=== PATIENT | female | born 1935 | race Caucasian/White ===

== ENCOUNTER 2019-07-16 14:48 | Inpatient (IN) | payer MEDICARE, BC ==
[~2019-07-16] VITALS: Ht 163.8 cm; Wt 74.3 kg
--- NOTE | 2019-07-16 15:38 | PHYS DOC ---
Past History Past Medical History: Anxiety, Dementia, Depression, Stroke Past Medical History Limited secondary to dementia Past Surgical History: Knee Replacement Past Surgical History Limited secondary to dementia Alcohol Use: None Drug Use: None Social History Limited secondary to dementia Adult General Chief Complaint Chief Complaint: PSYCH EVALUATION HPI HPI Patient is a 84-year-old female who presents for medical evaluation for admission to [facility]. Patient has history of dementia, depression, hypertension, and anxiety. She was brought in due to increasing agitation and wandering at current retirement. Patient has become aggressive with staff at times and resistant to accepting her medications. Patient denies fevers, chills, dysuria, increased urinary frequency, chest pain, shortness of breath, or lower extremity swelling. Admits to occasional diarrhea and bilateral knee pain. She is able to walk independently with the assistance of a walker. She denies recent falls. History of present illness limited secondary to dementia Review of Systems Review of Systems Constitutional: Denies fever or chills HENT: Admits nasal congestion, denies sore throat Respiratory: Denies cough or shortness of breath Cardiovascular: Denies chest pain or palpitations GI: Denies abdominal pain, nausea, or vomiting : Denies dysuria or hematuria Musculoskeletal: Denies back pain, admits joint pain Neurologic: Denies headache, focal weakness or sensory changes Review of systems limited secondary to dementia Allergies Allergies Allergies Coded Allergies Type Severity Reaction Last Updated Verified mold Allergy Unknown 07/16/19 Yes Physical Exam Physical Exam Constitutional: Well developed, well nourished, no acute distress, non-toxic appearance HENT: Normocephalic, atraumatic, oropharynx moist Eyes: EOMI, conjunctiva normal, no discharge Neck: Normal range of motion, no tenderness Cardiovascular: Heart rate normal, regular rhythm Lungs & Thorax: Bilateral breath sounds clear to auscultation, no wheezing Abdomen: Soft, no tenderness Skin: Warm, dry, no erythema, no rash Extremities: No tenderness, ROM intact, trace edema in bilateral lower extremity Neurologic: Alert but confused, normal motor function, normal sensory function, no focal deficits noted Psychiatric: Affect normal, judgment abnormal Current Patient Data Vital Signs Vital Signs Date Time Temp Pulse Resp B/P (MAP) Pulse Ox O2 Delivery O2 Flow Rate FiO2 07/16/19 15:12 98.1 79 18 147/93 (111) 96 Room Air EKG EKG Completed At 1506 Normal sinus rhythm with 79 bpm, right bundle branch block noted QRS of 124, QT/QTc of 412/474 Radiology/Procedures Radiology/Procedures [] Course & Med Decision Making Course & Med Decision Making Pertinent Lab studies reviewed. (See chart for details) Patient with past nuchal history of dementia with history of increased agitation presents from retirement for admission to [facility]. Patient medically screened. Labs obtained and posted to chart. EKG stable. Patient stable for [facility] admission for further evaluation and treatment. Dragon Disclaimer Dragon Disclaimer This electronic medical record was generated, in whole or in part, using a voice recognition dictation system. Departure Departure: Impression: Primary Impression: Dementia with behavioral disturbance Disposition: ADMITTED INPATIENT ([facility] under Dr. Woodruff (psych)) Condition: STABLE Referrals: FLOWER MORALEZ MD (PCP) Problem Qualifiers Primary Impression: Dementia with behavioral disturbance Dementia type: unspecified type Qualified Codes: F03.91 - Unspecified dementia with behavioral disturbance RAY CAAL DO Jul 16, 2019 15:38
[2019-07-16 15:45] LABS: BASO % 1 % (0-3); EOS # 0.2 x10^3/uL (0.0-0.7); EOS % 3 % (0-3); HEMATOCRIT 39.2 % (36.0-47.0); HEMOGLOBIN 12.8 g/dL (12.0-15.5); LYMPH # 1.1 x10^3/uL (1.0-4.8); LYMPH % 17 % (24-48); MEAN CORPUSCULAR HEMOGLOBIN 28 pg (25-35); MEAN CORPUSCULAR HGB CONC 33 g/dL (31-37); MEAN CORPUSCULAR VOLUME 87 fL (79-100); MONO % 15 % (0-9); NEUT # 4.4 x10^3uL (1.8-7.7); NEUT % 66 % (31-73); PLATELET COUNT 258 x10^3/uL (140-400); RED BLOOD COUNT 4.49 x10^6/uL (3.50-5.40); RED CELL DISTRIBUTION WIDTH 15.3 % (11.5-14.5); WHITE BLOOD COUNT 6.7 x10^3/uL (4.0-11.0)
[2019-07-16 15:55] LABS: CALCIUM 9.2 mg/dL (8.5-10.1); CREATININE 1.1 mg/dL (0.6-1.0); GFR 47.1; POTASSIUM 3.9 mmol/L (3.5-5.1)
[2019-07-16 16:10] LABS: ACETAMIN < 2.0 mcg/mL (10-30); SALIC 0.3 mg/dL (2.8-20.0)
[2019-07-16 16:11] LABS: ALBUMIN 3.6 g/dL (3.4-5.0); MAGNESIUM 2.1 mg/dL (1.8-2.4); TOTAL BILIRUBIN 0.4 mg/dL (0.2-1.0); TOTAL PROTEIN 7.2 g/dL (6.4-8.2)
[2019-07-16] MEDS ORDERED: MEMA10TA PO (16:13)
[2019-07-16] MEDS ORDERED: FLUT16SP21 NS (16:13)
[2019-07-16] MEDS ORDERED: LANO250L TP (16:13)
[2019-07-16] MEDS ORDERED: QUET25TA5 PO (16:13)
[2019-07-16] MEDS ORDERED: CETI10TA30 PO (16:13)
[2019-07-16] MEDS ORDERED: ACET500T68 PO ×2 (16:13)
[2019-07-16] MEDS ORDERED: TRAZ-120 PO (16:13)
[2019-07-16] MEDS ORDERED: MENT71OI TP (16:13)
[2019-07-16] MEDS ORDERED: ATOR40TA59 PO (16:13)
[2019-07-16] MEDS ORDERED: MIRA25TA PO (16:13)
[2019-07-16] MEDS ORDERED: ALPR0.254 PO ×2 (16:13)
[2019-07-16] MEDS ORDERED: BUSP5TAB PO (16:13)
[2019-07-16] MEDS ORDERED: ASPI-630 PO (16:13)
[2019-07-16] MEDS ORDERED: CALC500T31 PO (16:13)
[2019-07-16] MEDS ORDERED: SERT100T PO (16:13)
[2019-07-16 16:28] LABS: BARBITURATES NEG (NEG); BENZODIAZEPINES POS (NEG); CANNABINOIDS NEG (NEG); COCAINE NEG (NEG); METHADONE NEG (NEG); OPIATES NEG (NEG); PHENCYCLIDINE NEG (NEG)
[2019-07-16 16:29] LABS: AMPHETAMINE/METHAMPHETAMINE NEG (NEG)
[2019-07-16 16:49] LABS: BILIRUBIN,URINE NEG (NEG); CLARITY,URINE CLOUDY; COLOR,URINE AMBER; GLUCOSE,URINE NEG (NEG)
[2019-07-16 16:50] LABS: BACTERIA,URINE FEW /HPF (0-FEW); NITRITE,URINE NEG (NEG); RBC,URINE 0 /HPF (0-2); SQUAMOUS EPITHELIAL CELL,UR OCC /LPF; UROBILINOGEN,URINE 0.2 mg/dL (0.2 mg/dL)
[2019-07-16] MEDS ORDERED: MAGNESIUM HYDROXIDE 2,400 MG/30 ML ORAL.SUSP. PO PRN (17:45)
[2019-07-16] MEDS ORDERED: METHYL SALICYLATE/MENTHOL TOPICAL OINTMENT 57GM TUBE. TP PRN (17:45)
[2019-07-16] MEDS ORDERED: CALCIUM CARBONATE 500 MG TAB.CHEW PO PRN (18:15)
[2019-07-16] MEDS ORDERED: MENTHOL/ZINC OXIDE TOPICAL OINTMENT 113GM JAR. TP PRN (18:15)
[2019-07-16] MEDS ORDERED: MINERAL OIL/PETROLATUM TOPICAL CREAM 113GM JAR. TP PRN (18:30)
--- NOTE | 2019-07-16 18:38 | EKG ---
[address] [address] Test Date: 2019-07-16 Test Time: 15:06:04 Pat Name: LIZA HOWELL Department: Room: Gender: F Market Manager: : [id number] Requested By: RAY CAAL Order Number: [id number] Reading MD: Measurements Intervals [place] Rate: 79 P: 26 [place]: 196 QRS: -20 QRSD: 124 T: 8 QT: 412 QTc: 474 Interpretive Statements SINUS RHYTHM LEFTWARD AXIS RIGHT BUNDLE BRANCH BLOCK RVH WITH REPOLARIZATION ABNORMALITY QRS(T) CONTOUR ABNORMALITY CONSIDER ANTEROSEPTAL MYOCARDIAL DAMAGE ABNORMAL ECG RI6.01 No previous ECG available for comparison
[2019-07-16] MEDS: busPIRone 5 MG TABLET. PO SCH (20:15)
[2019-07-16] MEDS: ATORVASTATIN CALCIUM 20 MG TABLET PO SCH (20:15)
[2019-07-16] MEDS: FLUTICASONE 50MCG/NASAL SPRAY 16GM BOTTLE. NS SCH (20:15)
[2019-07-16 21:11] VITALS: BP 163/84
--- NOTE | 2019-07-16 21:26 | PDOC ---
Exam Note: Hever Note: Please also refer to the separate dictated note~for this date of service dictated separately. Discussed the patient with Nursing staff reviewed the chart.~Reviewed interim history and current functioning. Reviewed vital signs,~Labs/ Radiology~and current medications noted below. Continue current treatment with the changes noted in the dictated addendum note Assessment: Vital Signs/I&O: Vital Signs Date Time Temp Pulse Resp B/P (MAP) Pulse Ox O2 Delivery O2 Flow Rate FiO2 07/16/19 21:11 97.6 76 18 163/84 (110) 97 Room Air Labs: Laboratory Tests Test 07/16/19 15:24 07/16/19 15:50 White Blood Count 6.7 x10^3/uL (4.0-11.0) Red Blood Count 4.49 x10^6/uL (3.50-5.40) Hemoglobin 12.8 g/dL (12.0-15.5) Hematocrit 39.2 % (36.0-47.0) Mean Corpuscular Volume 87 fL (79-100) Mean Corpuscular Hemoglobin 28 pg (25-35) Mean Corpuscular Hemoglobin Concent 33 g/dL (31-37) Red Cell Distribution Width 15.3 % (11.5-14.5) H Platelet Count 258 x10^3/uL (140-400) Neutrophils (%) (Auto) 66 % (31-73) Lymphocytes (%) (Auto) 17 % (24-48) L Monocytes (%) (Auto) 15 % (0-9) H Eosinophils (%) (Auto) 3 % (0-3) Basophils (%) (Auto) 1 % (0-3) Neutrophils # (Auto) 4.4 x10^3uL (1.8-7.7) Lymphocytes # (Auto) 1.1 x10^3/uL (1.0-4.8) Monocytes # (Auto) 1.0 x10^3/uL (0.0-1.1) Eosinophils # (Auto) 0.2 x10^3/uL (0.0-0.7) Basophils # (Auto) 0.0 x10^3/uL (0.0-0.2) Sodium Level 143 mmol/L (136-145) Potassium Level 3.9 mmol/L (3.5-5.1) Chloride Level 107 mmol/L (98-107) Carbon Dioxide Level 25 mmol/L (21-32) Anion Gap 11 (6-14) Blood Urea Nitrogen 23 mg/dL (7-20) H Creatinine 1.1 mg/dL (0.6-1.0) H Estimated GFR (Cockcroft-Gault) 47.1 BUN/Creatinine Ratio 21 (6-20) H Glucose Level 109 mg/dL (70-99) H Calcium Level 9.2 mg/dL (8.5-10.1) Magnesium Level 2.1 mg/dL (1.8-2.4) Total Bilirubin 0.4 mg/dL (0.2-1.0) Aspartate Amino Transferase (AST) 21 U/L (15-37) Alanine Aminotransferase (ALT) 29 U/L (14-59) Alkaline Phosphatase 117 U/L (46-116) H Creatine Kinase 99 U/L (26-192) Creatine Kinase MB (Mass) 1.8 ng/mL (0.0-3.6) Creatine Kinase MB Relative Index 1.8 % (0-4) Troponin I Quantitative < 0.017 ng/mL (0-0.055) Total Protein 7.2 g/dL (6.4-8.2) Albumin 3.6 g/dL (3.4-5.0) Albumin/Globulin Ratio 1.0 (1.0-1.7) Salicylates Level 0.3 mg/dL (2.8-20.0) L Salicylate Last Dose Date Unknown Salicylate Last Dose Time Unknown Acetaminophen Level < 2.0 mcg/mL (10-30) L Acetaminophen Last Dose Date Unknown Acetaminophen Last Dose Time Unknown Ethyl Alcohol Level < 10 mg/dL (0-10) Urine Collection Type Unknown Urine Color Barbara Urine Clarity Cloudy Urine pH 5.5 Urine Specific Bradley >=1.030 Urine Protein Trace (NEG-TRACE) Urine Glucose (UA) Neg mg/dL (NEG) Urine Ketones (Stick) Trace mg/dL (NEG) Urine Blood Neg (NEG) Urine Nitrite Neg (NEG) Urine Bilirubin Neg (NEG) Urine Urobilinogen Dipstick 0.2 mg/dL (0.2 mg/dL) Urine Leukocyte Esterase Trace (NEG) Urine RBC 0 /HPF (0-2) Urine WBC 1-4 /HPF (0-4) Urine Squamous Epithelial Cells Occ /LPF Urine Bacteria Few /HPF (0-FEW) Urine Mucus Mod /LPF Urine Opiates Screen Neg (NEG) Urine Methadone Screen Neg (NEG) Urine Barbiturates Neg (NEG) Urine Phencyclidine Screen Neg (NEG) Urine Amphetamine/Methamphetamine Neg (NEG) Urine Benzodiazepines Screen Pos (NEG) Urine Cocaine Screen Neg (NEG) Urine Cannabinoids Screen Neg (NEG) Urine Ethyl Alcohol Neg (NEG) Current Medications: Meds: Current Medications Medications (Trade) Dose Ordered Sig/Alex Route PRN Reason Start Time Stop Time Status Last Admin Dose Admin Buspirone HCl (Buspar) 5 mg TID PO 07/16/19 21:00 07/16/19 20:15 Atorvastatin Calcium (Lipitor) 40 mg QHS PO 07/16/19 21:00 07/16/19 20:15 I have reviewed the current psychotropics carefully including drug interactions. Risk benefit ratio favors no change other than as noted in my dictated progress note. Diagnosis: Problems: (1) Dementia with behavioral disturbance (2) Major neurocognitive disorder due to Alzheimer's disease, with behavioral disturbance NORAH TOLLIVER MD Jul 16, 2019 21:26
[2019-07-17 02:06] LABS: HEMOGLOBIN A1C 5.7 % (4.8-5.6)
[2019-07-17 05:30] VITALS: BP 137/71
[2019-07-17] MEDS: ALPRAZolam 0.25 MG TABLET PO SCH (09:54)
[2019-07-17] MEDS: ASPIRIN 81 MG TAB.CHEW PO SCH (09:54)
[2019-07-17] MEDS: FLUTICASONE 50MCG/NASAL SPRAY 16GM BOTTLE. NS SCH ×2 (09:54→21:00)
[2019-07-17] MEDS: QUEtiapine 25 MG TABLET. PO SCH ×3 (09:54→17:33)
[2019-07-17] MEDS: MEMANTINE 10 MG TABLET. PO SCH ×2 (09:55→17:33)
[2019-07-17] MEDS: SERTRALINE 100 MG TABLET. PO SCH (09:55)
[2019-07-17] MEDS: busPIRone 5 MG TABLET. PO SCH ×3 (09:55→21:00)
[2019-07-17] MEDS: ACETAMINOPHEN 500 MG TABLET PO SCH (09:55)
[2019-07-17] MEDS: traZODone 50 MG TABLET. PO SCH ×3 (09:55→17:33)
[2019-07-17] MEDS: MIRABEGRON 25 MG TAB.ER.24H PO SCH (09:55)
[2019-07-17] MEDS: CETIRIZINE HCL 10 MG TABLET PO SCH (09:55)
[2019-07-17 13:28] LABS: THYROID STIM HORMONE (TSH) 1.671 uIU/mL (0.358-3.740)
[2019-07-17 15:59] VITALS: BP 120/74
[2019-07-17] MEDS: ATORVASTATIN CALCIUM 20 MG TABLET PO SCH (21:00)
--- NOTE | 2019-07-17 21:23 | PDOC ---
Exam Note: Hever Note: Please also refer to the separate dictated note~for this date of service dictated separately.~Patient seen individually. Discussed the patient with Nursing staff reviewed the chart.~Reviewed interim history and current functioning. Reviewed vital signs,~Labs/ Radiology~and current medications noted below. Continue current treatment with the changes noted in the dictated addendum note Assessment: Vital Signs/I&O: Vital Signs Date Time Temp Pulse Resp B/P (MAP) Pulse Ox O2 Delivery O2 Flow Rate FiO2 07/17/19 15:59 97.1 80 20 120/74 (89) 96 07/17/19 05:30 Room Air I & O 07/16/19 07/16/19 07/17/19 15:00 23:00 07:00 Intake Total 840 ml Balance 840 ml Current Medications: Meds: Current Medications Medications (Trade) Dose Ordered Sig/Alex Route PRN Reason Start Time Stop Time Status Last Admin Dose Admin Acetaminophen (Tylenol) 1,000 mg DAILY PO 07/17/19 09:00 07/17/19 09:55 Alprazolam (Xanax) 0.25 mg DAILY PO 07/17/19 09:00 07/17/19 09:54 Aspirin (Children'S Aspirin) 81 mg DAILY PO 07/17/19 09:00 07/17/19 09:54 Memantine (Namenda) 10 mg BIDWMEALS PO 07/17/19 08:00 07/17/19 17:33 Mirabegron (Myrbetriq) 25 mg DAILY PO 07/17/19 09:00 07/17/19 09:55 Quetiapine Fumarate (SEROquel) 25 mg 0900,1200,1700 PO 07/17/19 09:00 07/17/19 17:33 Sertraline HCl (Zoloft) 100 mg DAILY PO 07/17/19 09:00 07/17/19 09:55 Trazodone HCl (Desyrel) 50 mg 0800,1300,1800 PO 07/17/19 08:00 07/17/19 17:33 Cetirizine HCl (ZyrTEC) 10 mg DAILY PO 07/17/19 09:00 07/17/19 09:55 I have reviewed the current psychotropics carefully including drug interactions. Risk benefit ratio favors no change other than as noted in my dictated progress note. Diagnosis: Problems: (1) Major neurocognitive disorder due to Alzheimer's disease, with behavioral disturbance (2) Dementia with behavioral disturbance (3) Dementia, vascular, with delusions (4) Dementia, vascular, with depression (5) Impulse control disorder NORAH TOLLIVER MD Jul 17, 2019 21:22
--- NOTE | 2019-07-17 21:38 | HP ---
ADMIT DATE: 07/17/2019 PSYCHIATRIC PROGRESS NOTE This note covers elements not covered in my initial note of 07/17/2019. IDENTIFYING DATA: The patient is an 84-year-old female referred to us from [facility] by Dr. Betancourt, her primary care physician on account of worsening memory deficits, marked insomnia, refusing medications, having conversations with her . She has been exit seeking, agitated, aggressive with staff, has failed outpatient psychiatric interventions and 2 prior inpatient psychiatric hospitalizations, one at [facility] and the other at [facility]. Behaviors have been deemed dangerous, unmanageable at the facility. She is referred for inpatient psychiatric stabilization. SUBJECTIVE: I met with the patient's daughter and son-in-law and the patient evening of 07/17/2019 and also discussed with Rizwana Butler, compensation coordinator and nursing staff on 07/16/2019 after the patient was referred to us for the above and came through the Emergency Room at [facility] for psychiatric stabilization. CHIEF COMPLAINT: "I cannot hear you very well. Yes, I get forgetful." HISTORY OF PRESENT ILLNESS: The patient has a history of early dementia, vascular with depression, delusions. She is still able to recognize family members, but does get forgetful about short term events, though remote memory is better and she would not remember how to write music partially. 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 She has also had sleep and appetite changes. No active psychotic symptoms, suicidal or homicidal ideation. PAST PSYCHIATRIC HISTORY: As above. MEDICAL HISTORY: Positive for irritable bowel syndrome, osteoarthritis, hard of hearing, vitamin D deficiency. UA was positive. Culture sensitivity results are pending. CODE STATUS: DNR. ALLERGIES: MOLD. ACCU-CHEKS: None. DIET: Regular. Takes medications whole in applesauce. Ambulates with walker with supervision. CURRENT PSYCHOTROPICS: Xanax 0.25 mg daily plus q. 6 hours p.r.n. anxiety, BuSpar 5 mg 3 times a day, Namenda 10 mg b.i.d., Seroquel 25 mg 3 times a day, Zoloft 100 mg a day, trazodone 50 mg t.i.d. FAMILY HISTORY: Noncontributory. SOCIAL HISTORY: No history of alcohol, drug abuse, physical, sexual or elder abuse. She is not known to be a perpetrator. REACTION TO HOSPITALIZATION: The patient accepting of it. MENTAL STATUS EXAMINATION: The patient was seen individually evening of 07/17/2019. She is oriented to herself. Insight, judgment, recent memory is impaired, remote is better. Language function intact. Attention span short. Mood and affect remain somewhat anxious, labile. LABORATORY DATA: Reviewed. IMPRESSION: Major neurocognitive disorder, early Alzheimer, vascular with delusion, depression, behavioral disturbance; anxiety disorder, unspecified; impulse control disorder, unspecified; rule out urinary tract infection. Rest as above. PLAN: Admit to Geropsychiatry Unit at [facility]. I will see the patient daily individually from a psychiatric standpoint. Medical followup per Dr. Ibrahim. Continue the patient on her current psychotropics. Obtain records from [facility] in [facility]. Observe baseline, then adjust psychotropics as clinically indicated. ESTIMATED LENGTH OF STAY: 10-12 days. DISPOSITION: Plans back to group home when stable. MAN Destiney TOLLIVER MD DR: JUANA/villa JOB#: [id number] / [id number]
--- NOTE | 2019-07-17 22:16 | CONS ---
DATE OF CONSULTATION: 07/17/2019 REASON FOR CONSULTATION: Medical management. HISTORY OF PRESENT ILLNESS: The patient is an 84-year-old female patient, a resident at [facility], who was admitted on account of refusing medication, not sleeping, having conversation with , exit seeking, agitated, aggressive with staff, all this in a background of major neurocognitive disorder, vascular Alzheimer with depression, delusion and behavioral disorder, impulse control disorder; anxiety disorder. PAST MEDICAL HISTORY: Significant for vitamin B and D deficiency, osteoarthritis, hyperlipidemia and irritable bowel syndrome. PAST PSYCHIATRIC HISTORY: Significant for dementia and depression. PAST SURGICAL HISTORY: Significant for bilateral total knee arthroplasty. ALLERGIES: She is allergic to MOLD. MEDICATIONS: She is currently on following medications: She is on cetirizine 10 mg once a day, atorvastatin calcium 40 mg at bedtime, aspirin 81 mg once a day, Tylenol 1000 mg daily and acetaminophen 1000 mg 3 times a day as needed, sertraline 100 mg once a day, trazodone 50 mg 3 times a day, Seroquel 25 mg 3 times a day, alprazolam 0.5 mg daily, alprazolam 0.5 mg every 6 hours as needed, Namenda 10 mg twice a day, calcium carbonate 1000 mg every 6 hours, Flonase 2 sprays to each nostril once a day, Eucerin lotion applied topically twice a day. She is on Myrbetriq 25 mg daily for overactive bladder. PAST SURGICAL HISTORY: Noncontributory. SOCIAL HISTORY: She is a resident at [facility]. She has 2 sons and 1 daughter. She never smoked, does not drink alcohol. PHYSICAL EXAMINATION: GENERAL: On examining her, she looked well and was clearly in no apparent respiratory distress. No pallor, jaundice, cyanosis or thyromegaly. No jugular venous distention. No limb edema. VITAL SIGNS: Her heart rate was 71, blood pressure was 137/71, temperature 97.3, respiratory rate was 18 and oxygen saturation was 96% on room air. HEAD, EYES, EARS, NOSE AND THROAT: Showed normocephalic, atraumatic. NECK: Supple. HEART: Showed normal first and second heart sounds. No gallop, rub or murmur. CHEST: Clear to auscultation. No crepitation or rhonchi. ABDOMEN: Distended, soft, nontender. NEUROLOGIC: She is alert, but confused with normal motor, sensory function, no focal deficit. LABORATORY DATA: Showed a white cell count 6700, hemoglobin 13, hematocrit 39, MCV 87 and platelet count 258,000. Her chemistry showed a serum sodium 143, potassium 3.9, chloride 107, bicarbonate 25, anion gap of 11, BUN 23, creatinine 1.1, estimated GFR was 47 mL per minute. Her blood sugar was 109, calcium was 9.2, magnesium was 2.1. Total serum iron, TIBC and iron saturation are low consistent with anemia of chronic disease. Total bilirubin, AST, ALT, alkaline phosphatase are normal. Total protein was 7.2, albumin was 3.6. Her hemoglobin A1c was 5.7%. Her serum triglycerides were 81. Total cholesterol 110, LDL cholesterol was 47, VLDL was 16 and HDL cholesterol of 47, her ratio was 2. Her vitamin B12 was 520 pg/mL. 25-hydroxyvitamin D was normal at 37. The TSH, total T4 and total T3 are normal. Her toxic screen was positive for benzodiazepine. Her treponema pallidum antibodies were nonreactive. IMPRESSION: In summary, this is an 84-year-old female patient, a resident at [facility], who was admitted on account of being refusing medication, not sleeping, having conversations with her , exit seeking, agitated and aggressive behavior, all of that on the background of major neurocognitive disorder. Medically, the patient seemed stable. Her vital signs are within acceptable range as well as lab work. I will obviously follow all the lab works that are still pending at the time of this dictation and make any necessary recommendation. Thank you Dr. Woodruff for allowing me to participate in the care of this patient. WENDY BROWN MD DR: AMY/villa JOB#: [id number] / [id number]
--- NOTE | 2019-07-17 23:18 | RAD ---
EXAM: AP View of the chest DATE: 07/17/2019 9:30 PM INDICATION: coughing up green/brown mucous; feeling sick; some crackles COMPARISON: No Prior FINDINGS: The heart is not enlarged. Aorta is mildly tortuous. Mediastinal and hilar contours are normal. No focal parenchymal airspace opacity. Emphysematous changes are seen. No pleural effusion or pneumothorax. Left greater than right right shoulder joint degenerative changes. IMPRESSION: 1. No radiographic evidence for acute cardiopulmonary process. 2. Emphysematous changes are seen. Electronically signed by: David Butts MD (07/17/2019 11:15 PM) [id number]
[2019-07-18 05:17] VITALS: BP 104/62
[2019-07-18] MEDS: QUEtiapine 25 MG TABLET. PO SCH ×3 (08:17→17:00)
[2019-07-18] MEDS: MEMANTINE 10 MG TABLET. PO SCH ×2 (08:17→17:00)
[2019-07-18] MEDS: ALPRAZolam 0.25 MG TABLET PO SCH (08:17)
[2019-07-18] MEDS: SERTRALINE 100 MG TABLET. PO SCH (08:17)
[2019-07-18] MEDS: CETIRIZINE HCL 10 MG TABLET PO SCH (08:17)
[2019-07-18] MEDS: busPIRone 5 MG TABLET. PO SCH ×3 (08:17→19:43)
[2019-07-18] MEDS: MIRABEGRON 25 MG TAB.ER.24H PO SCH (08:18)
[2019-07-18] MEDS: traZODone 50 MG TABLET. PO SCH ×3 (08:18→17:58)
[2019-07-18] MEDS: FLUTICASONE 50MCG/NASAL SPRAY 16GM BOTTLE. NS SCH ×2 (08:18→19:43)
[2019-07-18] MEDS: ACETAMINOPHEN 500 MG TABLET PO SCH (08:18)
[2019-07-18] MEDS: ASPIRIN 81 MG TAB.CHEW PO SCH (08:18)
[2019-07-18] MEDS: MAG HYDROX/AL HYDROX/SIMETH 30 ML ORAL.SUSP PO PRN (10:35)
[2019-07-18 15:33] VITALS: BP 148/81
[2019-07-18] MEDS: DIVALPROEX 125 MG CAP.SPRINK PO SCH (17:00)
[2019-07-18] MEDS: ATORVASTATIN CALCIUM 20 MG TABLET PO SCH (19:43)
--- NOTE | 2019-07-18 21:24 | PDOC ---
Exam Note: Hever Note: Please also refer to the separate dictated note~for this date of service dictated separately.~Patient seen individually. Discussed the patient with Nursing staff reviewed the chart.~Reviewed interim history and current functioning. Reviewed vital signs,~Labs/ Radiology~and current medications noted below. Continue current treatment with the changes noted in the dictated addendum note Assessment: Vital Signs/I&O: Vital Signs Date Time Temp Pulse Resp B/P (MAP) Pulse Ox O2 Delivery O2 Flow Rate FiO2 07/18/19 15:33 97.2 70 18 148/81 (103) 94 07/17/19 05:30 Room Air I & O 07/17/19 07/17/19 07/18/19 15:00 23:00 07:00 Intake Total 240 ml 480 ml Balance 240 ml 480 ml Current Medications: Meds: Current Medications Medications (Trade) Dose Ordered Sig/Alex Route PRN Reason Start Time Stop Time Status Last Admin Dose Admin Divalproex Sodium (Depakote Sprinkles) 125 mg 0900,1700 PO 07/18/19 17:00 07/18/19 17:00 I have reviewed the current psychotropics carefully including drug interactions. Risk benefit ratio favors no change other than as noted in my dictated progress note. Diagnosis: Problems: (1) Major neurocognitive disorder due to Alzheimer's disease, with behavioral disturbance (2) Dementia with behavioral disturbance (3) Dementia, vascular, with delusions (4) Dementia, vascular, with depression (5) Impulse control disorder (6) Anxiety disorder NORAH TOLLIVER MD Jul 18, 2019 21:24
[2019-07-19 05:33] VITALS: BP 136/72
[2019-07-19] MEDS: MIRABEGRON 25 MG TAB.ER.24H PO SCH (08:44)
[2019-07-19] MEDS: DIVALPROEX 125 MG CAP.SPRINK PO SCH ×2 (08:45→17:00)
[2019-07-19] MEDS: CETIRIZINE HCL 10 MG TABLET PO SCH (08:45)
[2019-07-19] MEDS: traZODone 50 MG TABLET. PO SCH ×3 (08:45→18:00)
[2019-07-19] MEDS: MEMANTINE 10 MG TABLET. PO SCH ×2 (08:45→17:00)
[2019-07-19] MEDS: FLUTICASONE 50MCG/NASAL SPRAY 16GM BOTTLE. NS SCH ×2 (08:45→20:10)
[2019-07-19] MEDS: ASPIRIN 81 MG TAB.CHEW PO SCH (08:45)
[2019-07-19] MEDS: ALPRAZolam 0.25 MG TABLET PO SCH (08:45)
[2019-07-19] MEDS: SERTRALINE 100 MG TABLET. PO SCH (08:45)
[2019-07-19] MEDS: busPIRone 5 MG TABLET. PO SCH ×3 (08:45→20:10)
[2019-07-19] MEDS: QUEtiapine 25 MG TABLET. PO SCH ×3 (08:45→17:00)
[2019-07-19] MEDS: ACETAMINOPHEN 500 MG TABLET PO SCH (08:45)
[2019-07-19 15:40] VITALS: BP 119/79
[2019-07-19] MEDS: ATORVASTATIN CALCIUM 20 MG TABLET PO SCH (20:10)
[2019-07-20 05:58] VITALS: BP 125/72
[2019-07-20] MEDS: DIVALPROEX 125 MG CAP.SPRINK PO SCH ×2 (08:31→17:00)
[2019-07-20] MEDS: MIRABEGRON 25 MG TAB.ER.24H PO SCH (08:31)
[2019-07-20] MEDS: CETIRIZINE HCL 10 MG TABLET PO SCH (08:32)
[2019-07-20] MEDS: QUEtiapine 25 MG TABLET. PO SCH ×3 (08:32→17:00)
[2019-07-20] MEDS: MEMANTINE 10 MG TABLET. PO SCH ×2 (08:32→17:00)
[2019-07-20] MEDS: traZODone 50 MG TABLET. PO SCH ×3 (08:32→17:49)
[2019-07-20] MEDS: ACETAMINOPHEN 500 MG TABLET PO SCH (08:32)
[2019-07-20] MEDS: FLUTICASONE 50MCG/NASAL SPRAY 16GM BOTTLE. NS SCH ×2 (08:32→21:22)
[2019-07-20] MEDS: SERTRALINE 100 MG TABLET. PO SCH (08:32)
[2019-07-20] MEDS: ALPRAZolam 0.25 MG TABLET PO SCH (08:32)
[2019-07-20] MEDS: ASPIRIN 81 MG TAB.CHEW PO SCH (08:32)
[2019-07-20] MEDS: busPIRone 5 MG TABLET. PO SCH ×3 (08:32→21:22)
[2019-07-20 15:59] VITALS: BP 132/84
[2019-07-20] MEDS: ATORVASTATIN CALCIUM 20 MG TABLET PO SCH (21:22)
--- NOTE | 2019-07-20 21:38 | PDOC ---
Exam Note: Hever Note: This is a late entry for DOS 07/19/2019. Please also refer to the separate dictated note~for this date of service dictated separately.~Patient seen individually. Discussed the patient with Nursing staff reviewed the chart.~Reviewed interim history and current functioning. Reviewed vital signs,~Labs/ Radiology~and current medications noted below. Continue current treatment with the changes noted in the dictated addendum note Assessment: Vital Signs/I&O: Vital Signs Date Time Temp Pulse Resp B/P (MAP) Pulse Ox O2 Delivery O2 Flow Rate FiO2 07/20/19 15:59 97.6 69 18 132/84 (100) 99 07/20/19 05:58 Room Air I & O 07/19/19 07/19/19 07/20/19 15:00 23:00 07:00 Intake Total 840 ml 720 ml Balance 840 ml 720 ml Current Medications: I have reviewed the current psychotropics carefully including drug interactions. Risk benefit ratio favors no change other than as noted in my dictated progress note. Diagnosis: Problems: (1) Anxiety disorder (2) Major neurocognitive disorder due to Alzheimer's disease, with behavioral d isturbance (3) Dementia with behavioral disturbance (4) Dementia, vascular, with delusions (5) Dementia, vascular, with depression (6) Impulse control disorder NORAH TOLLIVER MD Jul 20, 2019 21:38
--- NOTE | 2019-07-20 21:52 | PDOC ---
Exam Note: Hever Note: Please also refer to the separate dictated note~for this date of service dictated separately.~Patient seen individually. Discussed the patient with Nursing staff reviewed the chart.~Reviewed interim history and current functioning. Reviewed vital signs,~Labs/ Radiology~and current medications noted below. Continue current treatment with the changes noted in the dictated addendum note Assessment: Vital Signs/I&O: Vital Signs Date Time Temp Pulse Resp B/P (MAP) Pulse Ox O2 Delivery O2 Flow Rate FiO2 07/20/19 15:59 97.6 69 18 132/84 (100) 99 07/20/19 05:58 Room Air I & O 07/19/19 07/19/19 07/20/19 15:00 23:00 07:00 Intake Total 840 ml 720 ml Balance 840 ml 720 ml Current Medications: I have reviewed the current psychotropics carefully including drug interactions. Risk benefit ratio favors no change other than as noted in my dictated progress note. Diagnosis: Problems: (1) Anxiety disorder (2) Major neurocognitive disorder due to Alzheimer's disease, with behavioral disturbance (3) Dementia with behavioral disturbance (4) Dementia, vascular, with delusions (5) Dementia, vascular, with depression (6) Impulse control disorder NORAH TOLLIVER MD Jul 20, 2019 21:52
--- NOTE | 2019-07-20 23:14 | PN ---
DATE: 07/18/2019 PSYCHIATRIC PROGRESS NOTE This late entry 07/18/2019 covers elements not covered in my initial note. SUBJECTIVE: I met with the patient evening of 07/18/2019. Per JOSEPH Cates, the patient slept 9-1/4 hours previous night. She has been pleasant, compliant with medications. We have requested records from [facility]. She continues to have some mood lability. REVIEW OF SYSTEMS: No CV, , pulmonary, eye, ENT system symptoms on review. Reliability poor. MENTAL STATUS EXAM: Oriented to herself, at times situation. Speech is coherent, has some latency. Abstraction fair, computation impaired, language function intact, attention span short. Mood and affect remain somewhat anxious, at times labile, but improved. Short term memory is impaired. LABORATORY DATA: Reviewed. IMPRESSION: Major neurocognitive disorder, early Alzheimer, vascular with delusion, depression; anxiety disorder, unspecified; impulse control disorder, unspecified. PLAN: Continue current psychotropics. Start Depakote Sprinkles 125 mg 9 a.m., 5:00 p.m. Check CBC, CMP, valproic acid level in 3 days. Rest unchanged for now. MAN Destiney TOLLIVER MD DR: JUANA/villa JOB#: [id number] / [id number]
--- NOTE | 2019-07-20 23:37 | PN ---
DATE: 07/19/2019 PSYCHIATRIC PROGRESS NOTE This late entry 07/19/2019 covers elements not covered in my initial note. SUBJECTIVE: I met with the patient evening of 07/19/2019. The patient slept 8-1/2 hours previous night. She remains confused, frequently asking nursing staff "where am I." REVIEW OF SYSTEMS: Ambulation impaired, with walker. No CV, , pulmonary, eye, ENT system symptoms on review. MENTAL STATUS EXAM: Oriented to herself. Insight, judgment, recent and remote memory, attention, concentration, fund of knowledge poor, consistent with her diagnoses. IMPRESSION: Major neurocognitive disorder, Alzheimer, vascular with delusion, depression, behavioral disturbance, urinary tract infection; anxiety disorder, unspecified; impulse control disorder, unspecified. PLAN: Await records from [facility] and [facility] and continue Zoloft, trazodone, Depakote was initiated, maintain BuSpar, Namenda and Seroquel unchanged for now. NORAH TOLLIVER MD DR: JUANA/villa JOB#: [id number] / [id number]
[2019-07-21 06:28] VITALS: BP 165/93
[2019-07-21 06:45] LABS: BASO % 1 % (0-3); EOS # 0.4 x10^3/uL (0.0-0.7); EOS % 8 % (0-3); HEMOGLOBIN 11.8 g/dL (12.0-15.5); LYMPH % 21 % (24-48); MEAN CORPUSCULAR HEMOGLOBIN 28 pg (25-35); MEAN CORPUSCULAR HGB CONC 32 g/dL (31-37); MEAN CORPUSCULAR VOLUME 87 fL (79-100); MONO # 0.7 x10^3/uL (0.0-1.1); MONO % 14 % (0-9); NEUT # 2.7 x10^3uL (1.8-7.7); NEUT % 56 % (31-73); PLATELET COUNT 245 x10^3/uL (140-400); RED BLOOD COUNT 4.24 x10^6/uL (3.50-5.40); RED CELL DISTRIBUTION WIDTH 14.9 % (11.5-14.5); WHITE BLOOD COUNT 4.8 x10^3/uL (4.0-11.0)
[2019-07-21 07:02] LABS: ALK PHOS 116 U/L (46-116); ALT (SGPT) 20 U/L (14-59); ANION GAP 8 (6-14); AST (SGOT) 15 U/L (15-37); BLOOD UREA NITROGEN 22 mg/dL (7-20); BUN/CREATININE RATIO 22 (6-20); CALCIUM 8.7 mg/dL (8.5-10.1); CARBON DIOXIDE 28 mmol/L (21-32); CHLORIDE 108 mmol/L (98-107); GFR 52.6; GLUCOSE 92 mg/dL (70-99); POTASSIUM 4.4 mmol/L (3.5-5.1); SODIUM 144 mmol/L (136-145); TOTAL BILIRUBIN 0.2 mg/dL (0.2-1.0); TOTAL PROTEIN 6.1 g/dL (6.4-8.2)
[2019-07-21 07:03] LABS: VAL ACID 20 mcg/mL (50-100)
[2019-07-21] MEDS: DIVALPROEX 125 MG CAP.SPRINK PO SCH ×2 (08:44→17:40)
[2019-07-21] MEDS: ASPIRIN 81 MG TAB.CHEW PO SCH (08:44)
[2019-07-21] MEDS: SERTRALINE 100 MG TABLET. PO SCH (08:44)
[2019-07-21] MEDS: QUEtiapine 25 MG TABLET. PO SCH ×3 (08:44→17:40)
[2019-07-21] MEDS: ALPRAZolam 0.25 MG TABLET PO SCH (08:44)
[2019-07-21] MEDS: FLUTICASONE 50MCG/NASAL SPRAY 16GM BOTTLE. NS SCH ×2 (08:45→20:04)
[2019-07-21] MEDS: ACETAMINOPHEN 500 MG TABLET PO SCH (08:45)
[2019-07-21] MEDS: MEMANTINE 10 MG TABLET. PO SCH ×2 (08:45→17:40)
[2019-07-21] MEDS: CETIRIZINE HCL 10 MG TABLET PO SCH (08:45)
[2019-07-21] MEDS: busPIRone 5 MG TABLET. PO SCH ×3 (08:45→20:04)
[2019-07-21] MEDS: MIRABEGRON 25 MG TAB.ER.24H PO SCH (08:45)
[2019-07-21] MEDS: traZODone 50 MG TABLET. PO SCH ×3 (08:45→17:40)
[2019-07-21 16:06] VITALS: BP 123/68
[2019-07-21] MEDS: ATORVASTATIN CALCIUM 20 MG TABLET PO SCH (20:04)
--- NOTE | 2019-07-21 21:21 | PDOC ---
Exam Note: Hever Note: Please also refer to the separate dictated note~for this date of service dictated separately.~Patient seen individually. Discussed the patient with Nursing staff reviewed the chart.~Reviewed interim history and current functioning. Reviewed vital signs,~Labs/ Radiology~and current medications noted below. Continue current treatment with the changes noted in the dictated addendum note Assessment: Vital Signs/I&O: Vital Signs Date Time Temp Pulse Resp B/P (MAP) Pulse Ox O2 Delivery O2 Flow Rate FiO2 07/21/19 16:06 98.2 70 16 123/68 (86) 97 07/20/19 05:58 Room Air I & O 07/20/19 07/20/19 07/21/19 15:00 23:00 07:00 Intake Total 600 ml 360 ml Balance 600 ml 360 ml Labs: Laboratory Tests Test 07/21/19 06:15 White Blood Count 4.8 x10^3/uL (4.0-11.0) Red Blood Count 4.24 x10^6/uL (3.50-5.40) Hemoglobin 11.8 g/dL (12.0-15.5) L Hematocrit 37.0 % (36.0-47.0) Mean Corpuscular Volume 87 fL (79-100) Mean Corpuscular Hemoglobin 28 pg (25-35) Mean Corpuscular Hemoglobin Concent 32 g/dL (31-37) Red Cell Distribution Width 14.9 % (11.5-14.5) H Platelet Count 245 x10^3/uL (140-400) Neutrophils (%) (Auto) 56 % (31-73) Lymphocytes (%) (Auto) 21 % (24-48) L Monocytes (%) (Auto) 14 % (0-9) H Eosinophils (%) (Auto) 8 % (0-3) H Basophils (%) (Auto) 1 % (0-3) Neutrophils # (Auto) 2.7 x10^3uL (1.8-7.7) Lymphocytes # (Auto) 1.0 x10^3/uL (1.0-4.8) Monocytes # (Auto) 0.7 x10^3/uL (0.0-1.1) Eosinophils # (Auto) 0.4 x10^3/uL (0.0-0.7) Basophils # (Auto) 0.0 x10^3/uL (0.0-0.2) Sodium Level 144 mmol/L (136-145) Potassium Level 4.4 mmol/L (3.5-5.1) Chloride Level 108 mmol/L (98-107) H Carbon Dioxide Level 28 mmol/L (21-32) Anion Gap 8 (6-14) Blood Urea Nitrogen 22 mg/dL (7-20) H Creatinine 1.0 mg/dL (0.6-1.0) Estimated GFR (Cockcroft-Gault) 52.6 BUN/Creatinine Ratio 22 (6-20) H Glucose Level 92 mg/dL (70-99) Calcium Level 8.7 mg/dL (8.5-10.1) Total Bilirubin 0.2 mg/dL (0.2-1.0) Aspartate Amino Transferase (AST) 15 U/L (15-37) Alanine Aminotransferase (ALT) 20 U/L (14-59) Alkaline Phosphatase 116 U/L (46-116) Ammonia 10 mcmol/L (11-34) L Total Protein 6.1 g/dL (6.4-8.2) L Albumin 3.0 g/dL (3.4-5.0) L Albumin/Globulin Ratio 1.0 (1.0-1.7) Valproic Acid Level 20 mcg/mL (50-100) L Valproic Acid Last Dose Date 07/20/2019 Valproic Acid Last Dose Time 1700 Current Medications: I have reviewed the current psychotropics carefully including drug interactions. Risk benefit ratio favors no change other than as noted in my dictated progress note. Diagnosis: Problems: (1) Anxiety disorder (2) Major neurocognitive disorder due to Alzheimer's disease, with behavioral disturbance (3) Dementia with behavioral disturbance (4) Dementia, vascular, with delusions (5) Dementia, vascular, with depression (6) Impulse control disorder NORAH TOLLIVER MD Jul 21, 2019 21:21
--- NOTE | 2019-07-22 00:28 | PN ---
DATE: 07/20/2019 PSYCHIATRIC PROGRESS NOTE This late entry 07/20/2019 covers elements not covered in my initial note. SUBJECTIVE: I met with the patient evening of 07/20/2019. Per JOSEPH Bell, the patient slept 10 hours previous night. She remains confused, forgetful, hard of hearing, exit seeking at times. Chest x-ray is negative. Per nursing report, she was talking to her , but otherwise pleasant, cooperative, disorganized. REVIEW OF SYSTEMS: Hard of hearing. No CV, , pulmonary, eye system symptoms on review. Impaired ambulation with walker. MENTAL STATUS EXAM: Oriented to herself. Insight, judgment, recent memory is impaired, remote is better. Language function intact. Attention span short. Mood and affect: Continues to be somewhat anxious, labile at times, but improved. LABORATORY DATA: Reviewed. IMPRESSION: Unchanged from initial note. PLAN: No change from initial note. NORAH TOLLIVER MD DR: JUANA/villa JOB#: [id number] / [id number]
[2019-07-22 05:54] VITALS: BP 133/60
[2019-07-22] MEDS: busPIRone 5 MG TABLET. PO SCH ×3 (08:47→20:14)
[2019-07-22] MEDS: MIRABEGRON 25 MG TAB.ER.24H PO SCH (08:47)
[2019-07-22] MEDS: ACETAMINOPHEN 500 MG TABLET PO SCH (08:47)
[2019-07-22] MEDS: DIVALPROEX 125 MG CAP.SPRINK PO SCH ×2 (08:47→17:42)
[2019-07-22] MEDS: MEMANTINE 10 MG TABLET. PO SCH ×2 (08:47→17:42)
[2019-07-22] MEDS: ASPIRIN 81 MG TAB.CHEW PO SCH (08:47)
[2019-07-22] MEDS: SERTRALINE 100 MG TABLET. PO SCH (08:48)
[2019-07-22] MEDS: CETIRIZINE HCL 10 MG TABLET PO SCH (08:48)
[2019-07-22] MEDS: FLUTICASONE 50MCG/NASAL SPRAY 16GM BOTTLE. NS SCH ×2 (08:48→20:15)
[2019-07-22] MEDS: traZODone 50 MG TABLET. PO SCH ×3 (08:48→17:42)
[2019-07-22] MEDS: QUEtiapine 25 MG TABLET. PO SCH ×3 (08:48→17:42)
--- NOTE | 2019-07-22 09:22 | PN ---
DATE: 07/21/2019 PSYCHIATRIC PROGRESS NOTE This late entry of 07/21 covers elements not covered in my initial note. SUBJECTIVE: I met with the patient the evening of 07/21. Per JOSEPH Calvo, the patient slept 8-3/4 hours the previous night. She remains confused, forgetful, but not aggressive. Ammonia is 10, valproic acid level 20. REVIEW OF SYSTEMS: Ambulation impaired, with walker. Slightly hard of hearing. No CV, , pulmonary, eye system symptoms on review. MENTAL STATUS EXAMINATION: Oriented to herself. Insight, judgment, recent and remote memory, attention, concentration, fund of knowledge poor; consistent with her diagnosis mentioned in my initial note. PLAN: We will go ahead and discontinue the Xanax 0.25 mg daily scheduled. Maintain BuSpar, Namenda, Seroquel, Zoloft along with scheduled trazodone which is at 50 mg t.i.d., but we will try and reduce this, and then adjust the Depakote in place of this as a mood stabilizer. MAN Destiney TOLLIVER MD DR: JUANA/villa JOB#: [id number] / [id number]
[2019-07-22 15:44] VITALS: BP 132/81
[2019-07-22] MEDS: ATORVASTATIN CALCIUM 20 MG TABLET PO SCH (20:15)
[2019-07-22] MEDS: MAG HYDROX/AL HYDROX/SIMETH 30 ML ORAL.SUSP PO PRN (20:19)
--- NOTE | 2019-07-22 21:14 | PDOC ---
Exam Note: Hever Note: Please also refer to the separate dictated note~for this date of service dictated separately.~Patient seen individually. Discussed the patient with Nursing staff reviewed the chart.~Reviewed interim history and current functioning. Reviewed vital signs,~Labs/ Radiology~and current medications noted below. Continue current treatment with the changes noted in the dictated addendum note Assessment: Vital Signs/I&O: Vital Signs Date Time Temp Pulse Resp B/P (MAP) Pulse Ox O2 Delivery O2 Flow Rate FiO2 07/22/19 15:44 98.3 75 18 132/81 (98) 93 07/20/19 05:58 Room Air I & O 07/21/19 07/21/19 07/22/19 15:00 23:00 07:00 Intake Total 720 ml 340 ml Balance 720 ml 340 ml Current Medications: I have reviewed the current psychotropics carefully including drug interactions. Risk benefit ratio favors no change other than as noted in my dictated progress note. Diagnosis: Problems: (1) Anxiety disorder (2) Major neurocognitive disorder due to Alzheimer's disease, with behavioral disturbance (3) Dementia with behavioral disturbance (4) Dementia, vascular, with delusions (5) Dementia, vascular, with depression (6) Impulse control disorder NORAH TOLLIVER MD Jul 22, 2019 21:13
[2019-07-23 05:39] VITALS: BP 134/83
[2019-07-23] MEDS: FLUTICASONE 50MCG/NASAL SPRAY 16GM BOTTLE. NS SCH ×2 (07:48→19:30)
[2019-07-23] MEDS: MEMANTINE 10 MG TABLET. PO SCH ×2 (07:48→17:55)
[2019-07-23] MEDS: ASPIRIN 81 MG TAB.CHEW PO SCH (07:48)
[2019-07-23] MEDS: busPIRone 5 MG TABLET. PO SCH ×3 (07:48→19:30)
[2019-07-23] MEDS: SERTRALINE 100 MG TABLET. PO SCH (07:49)
[2019-07-23] MEDS: MIRABEGRON 25 MG TAB.ER.24H PO SCH (07:49)
[2019-07-23] MEDS: ACETAMINOPHEN 500 MG TABLET PO SCH (07:49)
[2019-07-23] MEDS: DIVALPROEX 125 MG CAP.SPRINK PO SCH ×2 (07:49→17:00)
[2019-07-23] MEDS: QUEtiapine 25 MG TABLET. PO SCH ×3 (07:49→17:55)
[2019-07-23] MEDS: CETIRIZINE HCL 10 MG TABLET PO SCH (07:49)
[2019-07-23] MEDS: traZODone 50 MG TABLET. PO SCH ×3 (07:49→17:55)
[2019-07-23 15:48] VITALS: BP 118/74
[2019-07-23] MEDS: ATORVASTATIN CALCIUM 20 MG TABLET PO SCH (19:30)
--- NOTE | 2019-07-23 21:16 | PDOC ---
Exam Note: Hever Note: Please also refer to the separate dictated note~for this date of service dictated separately.~Patient seen individually. Discussed the patient with Nursing staff reviewed the chart.~Reviewed interim history and current functioning. Reviewed vital signs,~Labs/ Radiology~and current medications noted below. Continue current treatment with the changes noted in the dictated addendum note Assessment: Vital Signs/I&O: Vital Signs Date Time Temp Pulse Resp B/P (MAP) Pulse Ox O2 Delivery O2 Flow Rate FiO2 07/23/19 15:48 98.4 83 18 118/74 (89) 97 07/20/19 05:58 Room Air I & O 07/22/19 07/22/19 07/23/19 15:00 23:00 07:00 Intake Total 480 ml 580 ml Balance 480 ml 580 ml Current Medications: I have reviewed the current psychotropics carefully including drug interactions. Risk benefit ratio favors no change other than as noted in my dictated progress note. Diagnosis: Problems: (1) Anxiety disorder (2) Major neurocognitive disorder due to Alzheimer's disease, with behavioral disturbance (3) Dementia with behavioral disturbance (4) Dementia, vascular, with delusions (5) Dementia, vascular, with depression (6) Impulse control disorder NORAH TOLLIVER MD Jul 23, 2019 21:16
--- NOTE | 2019-07-23 22:11 | PN ---
DATE: 07/22/2019 PSYCHIATRIC PROGRESS NOTE This late entry 07/22/2019 covers elements not covered in my initial note. SUBJECTIVE: I met with the patient evening of 07/22/2019. Per JOSEPH Frazier, the patient slept 9-1/4 hours previous night. She is confused with short-term memory deficits, somewhat hard of hearing, impaired ambulation with walker. REVIEW OF SYSTEMS: No CV, , pulmonary, eye system symptoms on review. Reliability poor. MENTAL STATUS EXAM: Oriented to herself and situation. Speech has some latency, coherent. Abstraction fair, computation impaired, language function intact, attention span short. Mood and affect remain somewhat withdrawn, little anxious, irritable at times. LABORATORY DATA: Reviewed. IMPRESSION: Unchanged from initial note. PLAN: No change from initial note. MAN Destiney TOLLIVER MD DR: JUANA/villa JOB#: [id number] / [id number]
[2019-07-24 06:00] VITALS: BP 149/95
[2019-07-24] MEDS: ASPIRIN 81 MG TAB.CHEW PO SCH (08:48)
[2019-07-24] MEDS: MEMANTINE 10 MG TABLET. PO SCH ×2 (08:48→17:27)
[2019-07-24] MEDS: ACETAMINOPHEN 500 MG TABLET PO SCH (08:48)
[2019-07-24] MEDS: busPIRone 5 MG TABLET. PO SCH ×3 (08:48→20:21)
[2019-07-24] MEDS: CETIRIZINE HCL 10 MG TABLET PO SCH (08:48)
[2019-07-24] MEDS: QUEtiapine 25 MG TABLET. PO SCH ×3 (08:49→17:27)
[2019-07-24] MEDS: FLUTICASONE 50MCG/NASAL SPRAY 16GM BOTTLE. NS SCH ×2 (08:49→20:23)
[2019-07-24] MEDS: SERTRALINE 100 MG TABLET. PO SCH (08:49)
[2019-07-24] MEDS: traZODone 50 MG TABLET. PO SCH ×3 (08:49→17:27)
[2019-07-24] MEDS: MIRABEGRON 25 MG TAB.ER.24H PO SCH (08:49)
[2019-07-24] MEDS: DIVALPROEX 125 MG CAP.SPRINK PO SCH ×3 (08:49→17:27)
[2019-07-24] MEDS: ALPRAZolam 0.25 MG TABLET PO PRN (14:11)
--- NOTE | 2019-07-24 14:29 | TX PLAN ---
Interdisciplinary Tx Plan Admission Information Jul 16, 2019 at 17:27 Legal Status (on Admission): Voluntary DPOA/Guardian Name: Asia Singleton Contact Other Contact Name: [facility] Other Contact Verified Code Status: DNR Allergies: Coded Allergies: mold (Verified Allergy, Unknown, 07/16/19) Diagnoses Primary Diagnosis: Major Neurocognitive D/O vascular alzheimers with depression, delusions and BPD; Impulse Control D/O, and Anxiety D/O unspecified Reasons for Admission: Aggressive, Delusions, Agitated, Hallucinations, Confusion/Disoriented Problem in Patient's Words: Per patient daughter: Patient has been "going downhill" since October 2016. Recently, pt will have an "intensive meltdown" about every 1.5 weeks. Pt is often confused and tries to leave facility to look for or older brother. Pt also "looks doped up" and has been sleeping "a lot more in the past couple months." Additional Admission Comments: Pt is aggressive with memory care staff at times, agitated, delusional,irritable, cyclical with good/bad days, trying to leave facility wandering, sobbing episodes, insomnia, hallucinations. Problems Active Problems: Increased anxiety Visual hallucinations Exit seeking Reports of aggression/agitated with staff Inactive Problems: Medication Mgmt Pt Strengths/Limitations Ability for Roberts: Poor Cognitive Functioning/Ability: Poor Communication Skills/Ability: Fair Financial Resources: Fair Insight/Judgement: Poor Intellectual Ability: Poor Physical Health: Fair Social Skills: Fair Stability in Family: Good Stability in School/Work: Poor Verbal Skills: Fair Discharge Criteria Discharge Criteria: No need for close observ., Adequate arrangements @DC, Improved behavior, Improved mood/thought Preliminary Discharge Plan Preliminary DC Plan: Memory Care Special Precautions Fall Risk: Low Initial D/C Plan Pt will plan to return to [facility] Identified Discharge Needs: Recommendation for continued mental health follow-up with psychiatrist. Currently Utilized Resources Currently Utilized Resources/P: Has a primary care physician with Dr. Obrien Referrals Community Resources: Psychiatric Follow-up Identified Problems/Hx/Goals Objectives/Short-Term Goals Short Term Goals: Dec. Aggression, Dec. Anxiety/Panic, Dec. Hallucination/Delus, Dec. Symp. Depression, Medication Stabilization, Monitor Med Effects Short Term Goals in Patient's: Medication and Behavioral Management Interventions/Frequency Staff Interventions/Frequency&: Psychiatrist to see pt at least 3x per week. Returns Clerk to see pt at lease 2x per week. Nursing to complete 15 minute checks daily. Encourage participation in group activities. 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 Education: Pt graduated high school and attended some college courses. Community Follow-up Continue follow-up with PCP Community Provider/Family Inpu: With pt aggression and exit seeking behaviors, she will need to be stabilized before being able to return to placement. Treatment Plan Explained Patient/Box Car Bracer had this treatment plan explained to him/her as indicated by the signature below and has been given the opportunity to ask questions and make suggestions: Date: Patient/Box Car Bracer Signature: Patient/Box Car Bracer Decline: No (Family is very interactive and supportive.) TANYA PARRISH Jul 24, 2019 14:29
[2019-07-24 16:10] VITALS: BP 142/84
[2019-07-24] MEDS: ATORVASTATIN CALCIUM 20 MG TABLET PO SCH (20:21)
--- NOTE | 2019-07-24 21:23 | PDOC ---
Exam Note: Hever Note: Please also refer to the separate dictated note~for this date of service dictated separately.~Patient seen individually. Discussed the patient with Nursing staff reviewed the chart.~Reviewed interim history and current functioning. Reviewed vital signs,~Labs/ Radiology~and current medications noted below. Continue current treatment with the changes noted in the dictated addendum note Assessment: Vital Signs/I&O: Vital Signs Date Time Temp Pulse Resp B/P (MAP) Pulse Ox O2 Delivery O2 Flow Rate FiO2 07/24/19 16:10 97.9 83 20 142/84 (103) 95 07/20/19 05:58 Room Air I & O 07/23/19 07/23/19 07/24/19 15:00 23:00 07:00 Intake Total 720 ml 240 ml Balance 720 ml 240 ml Current Medications: Meds: Current Medications Medications (Trade) Dose Ordered Sig/Alex Route PRN Reason Start Time Stop Time Status Last Admin Dose Admin Divalproex Sodium (Depakote Sprinkles) 125 mg 0900,1300,1700 PO 07/24/19 09:00 07/24/19 17:27 I have reviewed the current psychotropics carefully including drug interactions. Risk benefit ratio favors no change other than as noted in my dictated progress note. Diagnosis: Problems: (1) Anxiety disorder (2) Major neurocognitive disorder due to Alzheimer's disease, with behavioral disturbance (3) Dementia with behavioral disturbance (4) Dementia, vascular, with delusions (5) Dementia, vascular, with depression (6) Impulse control disorder NORAH TOLLIVER MD Jul 24, 2019 21:23
[2019-07-25 06:08] VITALS: BP 148/84
[2019-07-25] MEDS: FLUTICASONE 50MCG/NASAL SPRAY 16GM BOTTLE. NS SCH ×2 (08:47→20:57)
[2019-07-25] MEDS: ACETAMINOPHEN 500 MG TABLET PO SCH (08:47)
[2019-07-25] MEDS: traZODone 50 MG TABLET. PO SCH ×2 (08:47→13:00)
[2019-07-25] MEDS: MIRABEGRON 25 MG TAB.ER.24H PO SCH (08:47)
[2019-07-25] MEDS: MEMANTINE 10 MG TABLET. PO SCH ×2 (08:47→17:24)
[2019-07-25] MEDS: ASPIRIN 81 MG TAB.CHEW PO SCH (08:48)
[2019-07-25] MEDS: SERTRALINE 100 MG TABLET. PO SCH (08:48)
[2019-07-25] MEDS: CETIRIZINE HCL 10 MG TABLET PO SCH (08:48)
[2019-07-25] MEDS: busPIRone 5 MG TABLET. PO SCH ×3 (08:48→20:57)
[2019-07-25] MEDS: DIVALPROEX 125 MG CAP.SPRINK PO SCH ×3 (08:48→17:24)
[2019-07-25] MEDS: QUEtiapine 25 MG TABLET. PO SCH ×3 (08:48→17:23)
[2019-07-25 16:04] VITALS: BP 135/84
--- NOTE | 2019-07-25 19:25 | PN ---
DATE: 07/23/2019 PSYCHIATRIC PROGRESS NOTE This late entry 07/23/2019 covers elements not covered in my initial note. SUBJECTIVE: I met with the patient evening of 07/23/2019. Per JOSEPH Calvo, the patient slept 8-3/4 hours previous night. She is compliant with the medications, gets confused, gets scared because she does not believe her family knows she is here. She did talk to her daughter during the visit, but forgot about it. REVIEW OF SYSTEMS: Hard of hearing. No CV, , pulmonary, eye system symptoms on review. MENTAL STATUS EXAM: Oriented to herself, at times situation. Speech has some latency, coherent. Abstraction fair, computation impaired, language function intact, attention span short. Mood and affect somewhat anxious, labile at times, but very animated, verbal, talked during the individual visit with me, talking about how she learned her piano from the preschool assistant teacher and how her son is into the music business and makes violins. LABORATORY DATA: Reviewed. IMPRESSION: Unchanged from initial note. PLAN: Valproic acid level subtherapeutic at 20, on Depakote Sprinkles 125 mg twice a day. We will increase to 125 mg 3 times a day. Check CBC, CMP, valproic acid level in 3 days. Rest unchanged for now. NORAH TOLLIVER MD DR: JUANA/villa JOB#: [id number] / [id number]
--- NOTE | 2019-07-25 19:35 | PN ---
DATE: 07/24/2019 PSYCHIATRIC PROGRESS NOTE This late entry 07/24/2019 covers elements not covered in my initial note. SUBJECTIVE: I met with the patient evening of 07/24/2019 and staffed at treatment team meeting with the entire team in the morning. The patient's son, Chase, attended the conference. I reviewed the patient's history at length. She is sleeping average 7-8 hours. Appetite 75%. With short-term memory deficits, calm, cooperative, hard of hearing, anxious, wanting family to know where she is, forgets that they are aware of this. 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 REVIEW OF SYSTEMS: Hard of hearing. No CV, , pulmonary, eye system symptoms on review. MENTAL STATUS EXAM: Oriented to herself, at times situation. Speech is coherent, quite animated, verbal as I met with her in the evening, abstraction fair, computation impaired, language function intact. Short term memory is impaired. No active suicidal or homicidal ideation. LABORATORY DATA: Reviewed. IMPRESSION: Major neurocognitive disorder, Alzheimer, vascular with delusion, depression, behavioral disturbance; anxiety disorder, unspecified; impulse control disorder, unspecified. Rest unchanged. PLAN: Continue psychotropics from initial note. We will gradually adjust her Seroquel as needed. I would like to reduce the trazodone, Depakote has been increased. Repeat labs and I have reviewed records from [facility] and [facility] at length. NORAH TOLLIVER MD DR: JUANA/villa JOB#: [id number] / [id number]
[2019-07-25] MEDS: ATORVASTATIN CALCIUM 20 MG TABLET PO SCH (20:57)
--- NOTE | 2019-07-25 22:29 | PDOC ---
Exam Note: Hever Note: Please also refer to the separate dictated note~for this date of service dictated separately.~Patient seen individually. Discussed the patient with Nursing staff reviewed the chart.~Reviewed interim history and current functioning. Reviewed vital signs,~Labs/ Radiology~and current medications noted below. Continue current treatment with the changes noted in the dictated addendum note Assessment: Vital Signs/I&O: Vital Signs Date Time Temp Pulse Resp B/P (MAP) Pulse Ox O2 Delivery O2 Flow Rate FiO2 07/25/19 16:04 98.8 73 20 135/84 (101) 96 Room Air I & O 07/24/19 07/24/19 07/25/19 15:00 23:00 07:00 Intake Total 600 ml 240 ml 240 ml Balance 600 ml 240 ml 240 ml Current Medications: I have reviewed the current psychotropics carefully including drug interactions. Risk benefit ratio favors no change other than as noted in my dictated progress note. Diagnosis: Problems: (1) Anxiety disorder (2) Major neurocognitive disorder due to Alzheimer's disease, with behavioral disturbance (3) Dementia with behavioral disturbance (4) Dementia, vascular, with delusions (5) Dementia, vascular, with depression (6) Impulse control disorder NORAH TOLLIVER MD Jul 25, 2019 22:29
[2019-07-26 05:26] VITALS: BP 128/85
[2019-07-26] MEDS: QUEtiapine 25 MG TABLET. PO SCH ×3 (09:06→17:57)
[2019-07-26] MEDS: DIVALPROEX 125 MG CAP.SPRINK PO SCH ×3 (09:06→17:57)
[2019-07-26] MEDS: MIRABEGRON 25 MG TAB.ER.24H PO SCH (09:06)
[2019-07-26] MEDS: SERTRALINE 100 MG TABLET. PO SCH (09:06)
[2019-07-26] MEDS: busPIRone 5 MG TABLET. PO SCH ×3 (09:06→20:06)
[2019-07-26] MEDS: CETIRIZINE HCL 10 MG TABLET PO SCH (09:06)
[2019-07-26] MEDS: MEMANTINE 10 MG TABLET. PO SCH ×2 (09:06→17:57)
[2019-07-26] MEDS: ASPIRIN 81 MG TAB.CHEW PO SCH (09:06)
[2019-07-26] MEDS: FLUTICASONE 50MCG/NASAL SPRAY 16GM BOTTLE. NS SCH ×2 (09:06→20:06)
[2019-07-26] MEDS: ACETAMINOPHEN 500 MG TABLET PO SCH (09:06)
[2019-07-26 15:32] VITALS: BP 129/73
[2019-07-26] MEDS: MAG HYDROX/AL HYDROX/SIMETH 30 ML ORAL.SUSP PO PRN (17:57)
[2019-07-26] MEDS: ATORVASTATIN CALCIUM 20 MG TABLET PO SCH (20:06)
--- NOTE | 2019-07-26 21:17 | PDOC ---
Exam Note: Hever Note: Please also refer to the separate dictated note~for this date of service dictated separately.~Patient seen individually. Discussed the patient with Nursing staff reviewed the chart.~Reviewed interim history and current functioning. Reviewed vital signs,~Labs/ Radiology~and current medications noted below. Continue current treatment with the changes noted in the dictated addendum note Assessment: Vital Signs/I&O: Vital Signs Date Time Temp Pulse Resp B/P (MAP) Pulse Ox O2 Delivery O2 Flow Rate FiO2 07/26/19 15:32 97.5 96 18 129/73 (91) 97 07/25/19 16:04 Room Air I & O 07/25/19 07/25/19 07/26/19 15:00 23:00 07:00 Intake Total 480 ml 460 ml Balance 480 ml 460 ml Current Medications: I have reviewed the current psychotropics carefully including drug interactions. Risk benefit ratio favors no change other than as noted in my dictated progress note. Diagnosis: Problems: (1) Anxiety disorder (2) Major neurocognitive disorder due to Alzheimer's disease, with behavioral disturbance (3) Dementia with behavioral disturbance (4) Dementia, vascular, with delusions (5) Dementia, vascular, with depression (6) Impulse control disorder NORAH TOLLIVER MD Jul 26, 2019 21:17
[2019-07-27 05:35] VITALS: BP 113/59
[2019-07-27 07:04] LABS: BASO # 0.1 x10^3/uL (0.0-0.2); BASO % 1 % (0-3); EOS # 0.3 x10^3/uL (0.0-0.7); EOS % 6 % (0-3); HEMATOCRIT 37.6 % (36.0-47.0); LYMPH # 1.2 x10^3/uL (1.0-4.8); LYMPH % 21 % (24-48); MEAN CORPUSCULAR HEMOGLOBIN 28 pg (25-35); MEAN CORPUSCULAR HGB CONC 32 g/dL (31-37); MEAN CORPUSCULAR VOLUME 88 fL (79-100); MONO # 0.9 x10^3/uL (0.0-1.1); MONO % 16 % (0-9); NEUT # 3.1 x10^3uL (1.8-7.7); NEUT % 56 % (31-73); PLATELET COUNT 247 x10^3/uL (140-400); RED BLOOD COUNT 4.27 x10^6/uL (3.50-5.40); RED CELL DISTRIBUTION WIDTH 15.1 % (11.5-14.5); WHITE BLOOD COUNT 5.6 x10^3/uL (4.0-11.0)
[2019-07-27 07:20] LABS: ALBUMIN/GLOBULIN RATIO 0.9 (1.0-1.7); ALK PHOS 103 U/L (46-116); ALT (SGPT) 36 U/L (14-59); ANION GAP 6 (6-14); AST (SGOT) 32 U/L (15-37); BLOOD UREA NITROGEN 22 mg/dL (7-20); BUN/CREATININE RATIO 20 (6-20); CALCIUM 8.6 mg/dL (8.5-10.1); CARBON DIOXIDE 29 mmol/L (21-32); CHLORIDE 106 mmol/L (98-107); CREATININE 1.1 mg/dL (0.6-1.0); GFR 47.1; GLUCOSE 95 mg/dL (70-99); POTASSIUM 4.5 mmol/L (3.5-5.1); SODIUM 141 mmol/L (136-145); TOTAL BILIRUBIN 0.4 mg/dL (0.2-1.0); TOTAL PROTEIN 6.4 g/dL (6.4-8.2)
[2019-07-27 07:29] LABS: VAL ACID 31 mcg/mL (50-100)
[2019-07-27] MEDS: FLUTICASONE 50MCG/NASAL SPRAY 16GM BOTTLE. NS SCH ×2 (08:05→20:05)
[2019-07-27] MEDS: MEMANTINE 10 MG TABLET. PO SCH ×2 (08:05→17:22)
[2019-07-27] MEDS: QUEtiapine 25 MG TABLET. PO SCH ×3 (08:06→17:22)
[2019-07-27] MEDS: ASPIRIN 81 MG TAB.CHEW PO SCH (08:06)
[2019-07-27] MEDS: DIVALPROEX 125 MG CAP.SPRINK PO SCH ×3 (08:06→17:22)
[2019-07-27] MEDS: busPIRone 5 MG TABLET. PO SCH ×3 (08:06→20:05)
[2019-07-27] MEDS: MIRABEGRON 25 MG TAB.ER.24H PO SCH (08:06)
[2019-07-27] MEDS: SERTRALINE 100 MG TABLET. PO SCH (08:07)
[2019-07-27] MEDS: ACETAMINOPHEN 500 MG TABLET PO SCH (08:07)
[2019-07-27] MEDS: CETIRIZINE HCL 10 MG TABLET PO SCH (08:07)
[2019-07-27 15:22] VITALS: BP 120/62
--- NOTE | 2019-07-27 16:46 | PN ---
DATE: 07/25/2019 This late entry 07/25/2019 covers elements not covered in my initial note. SUBJECTIVE: I met with the patient evening of 07/25/2019. The patient slept 10 hours previous night per JOSEPH Gaspar. She has been tired, sedated most of the day and we will go ahead and stopped her trazodone 50 mg t.i.d. since we have initiated Depakote as a mood stabilizer. She did eat breakfast, no lunch. Staff are going to get her up for dinner. REVIEW OF SYSTEMS: Hard of hearing. Impaired ambulation. No CV, , pulmonary, eye system symptoms on review. MENTAL STATUS EXAM: Oriented to herself. Insight, judgment, recent and remote memory, attention, concentration, fund of knowledge poor, consistent with her diagnosis mentioned in my initial note. PLAN: Stop the trazodone. Rest unchanged for now. Monitor Depakote may need to reduce Seroquel if sedation persists. Continue Zoloft. NORAH TOLLIVER MD DR: JUANA/villa JOB#: [id number] / [id number]
--- NOTE | 2019-07-27 16:49 | PN ---
DATE: 07/26/2019 This late entry 07/26/2019 covers elements not covered in my initial note. SUBJECTIVE: I met with the patient evening of 07/26/2019. The patient slept 8-1/2 hours previous night. She remains confused, forgetful, spending much time in bed, but less sedated than the day before. Has eaten the rest of her meals other than dinner. REVIEW OF SYSTEMS: Hard of hearing. Impaired ambulation. No CV, , pulmonary, eye, ENT system symptoms on review. Reliability poor. MENTAL STATUS EXAM: Oriented to herself. Insight, judgment, recent and remote memory, attention, concentration, fund of knowledge poor, consistent with her diagnosis mentioned in my initial note. PLAN: No change from initial note. MAN Destiney TOLLIVER MD DR: JUANA/villa JOB#: [id number] / [id number]
[2019-07-27] MEDS: ATORVASTATIN CALCIUM 20 MG TABLET PO SCH (20:05)
--- NOTE | 2019-07-27 21:13 | PDOC ---
Exam Note: Hever Note: Please also refer to the separate dictated note~for this date of service dictated separately.~Patient seen individually. Discussed the patient with Nursing staff reviewed the chart.~Reviewed interim history and current functioning. Reviewed vital signs,~Labs/ Radiology~and current medications noted below. Continue current treatment with the changes noted in the dictated addendum note Assessment: Vital Signs/I&O: Vital Signs Date Time Temp Pulse Resp B/P (MAP) Pulse Ox O2 Delivery O2 Flow Rate FiO2 07/27/19 15:22 98.6 75 16 120/62 (81) 92 07/25/19 16:04 Room Air I & O 07/26/19 07/26/19 07/27/19 15:00 23:00 07:00 Intake Total 720 ml 0 ml Balance 720 ml 0 ml Labs: Laboratory Tests Test 07/27/19 06:45 White Blood Count 5.6 x10^3/uL (4.0-11.0) Red Blood Count 4.27 x10^6/uL (3.50-5.40) Hemoglobin 12.0 g/dL (12.0-15.5) Hematocrit 37.6 % (36.0-47.0) Mean Corpuscular Volume 88 fL (79-100) Mean Corpuscular Hemoglobin 28 pg (25-35) Mean Corpuscular Hemoglobin Concent 32 g/dL (31-37) Red Cell Distribution Width 15.1 % (11.5-14.5) H Platelet Count 247 x10^3/uL (140-400) Neutrophils (%) (Auto) 56 % (31-73) Lymphocytes (%) (Auto) 21 % (24-48) L Monocytes (%) (Auto) 16 % (0-9) H Eosinophils (%) (Auto) 6 % (0-3) H Basophils (%) (Auto) 1 % (0-3) Neutrophils # (Auto) 3.1 x10^3uL (1.8-7.7) Lymphocytes # (Auto) 1.2 x10^3/uL (1.0-4.8) Monocytes # (Auto) 0.9 x10^3/uL (0.0-1.1) Eosinophils # (Auto) 0.3 x10^3/uL (0.0-0.7) Basophils # (Auto) 0.1 x10^3/uL (0.0-0.2) Sodium Level 141 mmol/L (136-145) Potassium Level 4.5 mmol/L (3.5-5.1) Chloride Level 106 mmol/L (98-107) Carbon Dioxide Level 29 mmol/L (21-32) Anion Gap 6 (6-14) Blood Urea Nitrogen 22 mg/dL (7-20) H Creatinine 1.1 mg/dL (0.6-1.0) H Estimated GFR (Cockcroft-Gault) 47.1 BUN/Creatinine Ratio 20 (6-20) Glucose Level 95 mg/dL (70-99) Calcium Level 8.6 mg/dL (8.5-10.1) Total Bilirubin 0.4 mg/dL (0.2-1.0) Aspartate Amino Transferase (AST) 32 U/L (15-37) Alanine Aminotransferase (ALT) 36 U/L (14-59) Alkaline Phosphatase 103 U/L (46-116) Total Protein 6.4 g/dL (6.4-8.2) Albumin 3.0 g/dL (3.4-5.0) L Albumin/Globulin Ratio 0.9 (1.0-1.7) L Valproic Acid Level 31 mcg/mL (50-100) L Valproic Acid Last Dose Date 07/26/19 Valproic Acid Last Dose Time 1700 Current Medications: I have reviewed the current psychotropics carefully including drug interactions. Risk benefit ratio favors no change other than as noted in my dictated progress note. Diagnosis: Problems: (1) Anxiety disorder (2) Major neurocognitive disorder due to Alzheimer's disease, with behavioral disturbance (3) Dementia with behavioral disturbance (4) Dementia, vascular, with delusions (5) Dementia, vascular, with depression (6) Impulse control disorder NORAH TOLLIVER MD Jul 27, 2019 21:13
[2019-07-28 06:18] VITALS: BP 153/85
[2019-07-28] MEDS: ACETAMINOPHEN 500 MG TABLET PO SCH (08:25)
[2019-07-28] MEDS: SERTRALINE 100 MG TABLET. PO SCH (08:25)
[2019-07-28] MEDS: MIRABEGRON 25 MG TAB.ER.24H PO SCH (08:25)
[2019-07-28] MEDS: MEMANTINE 10 MG TABLET. PO SCH ×2 (08:25→17:21)
[2019-07-28] MEDS: busPIRone 5 MG TABLET. PO SCH ×3 (08:25→19:24)
[2019-07-28] MEDS: ASPIRIN 81 MG TAB.CHEW PO SCH (08:25)
[2019-07-28] MEDS: DIVALPROEX 125 MG CAP.SPRINK PO SCH ×3 (08:25→17:21)
[2019-07-28] MEDS: QUEtiapine 25 MG TABLET. PO SCH ×3 (08:25→17:21)
[2019-07-28] MEDS: CETIRIZINE HCL 10 MG TABLET PO SCH (08:26)
[2019-07-28] MEDS: FLUTICASONE 50MCG/NASAL SPRAY 16GM BOTTLE. NS SCH ×2 (08:29→19:26)
[2019-07-28] MEDS: ALPRAZolam 0.25 MG TABLET PO PRN (12:24)
[2019-07-28] MEDS: ACETAMINOPHEN 500 MG TABLET PO PRN (13:11)
[2019-07-28 16:05] VITALS: BP 165/80
[2019-07-28] MEDS: ATORVASTATIN CALCIUM 20 MG TABLET PO SCH (19:24)
--- NOTE | 2019-07-28 21:34 | PDOC ---
Exam Note: Hever Note: Please also refer to the separate dictated note~for this date of service dictated separately.~Patient seen individually. Discussed the patient with Nursing staff reviewed the chart.~Reviewed interim history and current functioning. Reviewed vital signs,~Labs/ Radiology~and current medications noted below. Continue current treatment with the changes noted in the dictated addendum note Assessment: Vital Signs/I&O: Vital Signs Date Time Temp Pulse Resp B/P (MAP) Pulse Ox O2 Delivery O2 Flow Rate FiO2 07/28/19 16:05 98.0 106 16 165/80 (108) 93 07/25/19 16:04 Room Air I & O 07/27/19 07/27/19 07/28/19 15:00 23:00 07:00 Intake Total 720 ml 480 ml 100 ml Balance 720 ml 480 ml 100 ml Current Medications: I have reviewed the current psychotropics carefully including drug interactions. Risk benefit ratio favors no change other than as noted in my dictated progress note. Diagnosis: Problems: (1) Anxiety disorder (2) Major neurocognitive disorder due to Alzheimer's disease, with behavioral disturbance (3) Dementia with behavioral disturbance (4) Dementia, vascular, with delusions (5) Dementia, vascular, with depression (6) Impulse control disorder NORAH TOLLIVER MD Jul 28, 2019 21:34
--- NOTE | 2019-07-29 00:36 | PN ---
DATE: 07/27/2019 PSYCHIATRIC PROGRESS NOTE This late entry 07/27/2019 covers elements not covered in my initial note. SUBJECTIVE: I met with the patient evening of 07/27/2019. Per JOSEPH Bauer, the patient slept 9-1/4 hours previous night. Valproic acid level subtherapeutic in the 30s. At times, she is refusing medications, takes it with much coaxing. She has been much less sedated during the day on 07/27/2019. REVIEW OF SYSTEMS: No CV, , pulmonary, eye, ENT system symptoms on review. Reliability fair. MENTAL STATUS EXAM: Oriented to herself. Insight, judgment, recent memory is impaired, remote is better. Language function intact. Attention span short. Mood and affect is improved. LABORATORY DATA: Reviewed. IMPRESSION: Unchanged from initial note. PLAN: No change from initial note. We stopped the scheduled trazodone, will not increase the Depakote just yet due to her sedation even though level is subtherapeutic, but clinically with respect to aggression, mood lability, she is doing better. We will reassess in the next day or so. NORAH TOLLIVER MD DR: JUANA/villa JOB#: [id number] / [id number]
[2019-07-29 06:28] VITALS: BP 146/84
[2019-07-29] MEDS: FLUTICASONE 50MCG/NASAL SPRAY 16GM BOTTLE. NS SCH ×2 (08:07→20:13)
[2019-07-29] MEDS: CETIRIZINE HCL 10 MG TABLET PO SCH (08:07)
[2019-07-29] MEDS: DIVALPROEX 125 MG CAP.SPRINK PO SCH ×3 (08:07→17:07)
[2019-07-29] MEDS: ACETAMINOPHEN 500 MG TABLET PO SCH (08:08)
[2019-07-29] MEDS: MIRABEGRON 25 MG TAB.ER.24H PO SCH (08:08)
[2019-07-29] MEDS: SERTRALINE 100 MG TABLET. PO SCH (08:08)
[2019-07-29] MEDS: QUEtiapine 25 MG TABLET. PO SCH ×3 (08:08→17:07)
[2019-07-29] MEDS: busPIRone 5 MG TABLET. PO SCH ×3 (08:08→20:08)
[2019-07-29] MEDS: MEMANTINE 10 MG TABLET. PO SCH ×2 (08:08→17:07)
[2019-07-29] MEDS: ASPIRIN 81 MG TAB.CHEW PO SCH (08:08)
[2019-07-29 15:36] VITALS: BP 132/72
[2019-07-29] MEDS: ATORVASTATIN CALCIUM 20 MG TABLET PO SCH (20:08)
[2019-07-29] MEDS: ACETAMINOPHEN 500 MG TABLET PO PRN ×2 (20:10→20:11)
--- NOTE | 2019-07-29 21:16 | PDOC ---
Exam Note: Hever Note: Please also refer to the separate dictated note~for this date of service dictated separately.~Patient seen individually. Discussed the patient with Nursing staff reviewed the chart.~Reviewed interim history and current functioning. Reviewed vital signs,~Labs/ Radiology~and current medications noted below. Continue current treatment with the changes noted in the dictated addendum note Assessment: Vital Signs/I&O: Vital Signs Date Time Temp Pulse Resp B/P (MAP) Pulse Ox O2 Delivery O2 Flow Rate FiO2 07/29/19 15:36 98.0 78 16 132/72 (92) 95 07/25/19 16:04 Room Air I & O 07/28/19 07/28/19 07/29/19 15:00 23:00 07:00 Intake Total 600 ml 240 ml Balance 600 ml 240 ml Current Medications: Meds: Current Medications Medications (Trade) Dose Ordered Sig/Alex Route PRN Reason Start Time Stop Time Status Last Admin Dose Admin Quetiapine Fumarate (SEROquel) 25 mg 1200 PO 07/29/19 12:00 07/29/19 12:13 Quetiapine Fumarate (SEROquel) 37.5 mg BID@0900,1700 PO 07/29/19 09:00 07/29/19 17:07 I have reviewed the current psychotropics carefully including drug interactions. Risk benefit ratio favors no change other than as noted in my dictated progress note. Diagnosis: Problems: (1) Anxiety disorder (2) Major neurocognitive disorder due to Alzheimer's disease, with behavioral disturbance (3) Dementia with behavioral disturbance (4) Dementia, vascular, with delusions (5) Dementia, vascular, with depression (6) Impulse control disorder NORAH TOLLIVER MD Jul 29, 2019 21:16
--- NOTE | 2019-07-29 23:23 | PN ---
DATE: 07/28/2019 PSYCHIATRIC PROGRESS NOTE This late entry 07/28/2019 covers elements not covered in my initial note. SUBJECTIVE: I met with the patient evening of 07/28/2019. Per JOSEPH Bauer, the patient slept 8 hours previous night. She has been somewhat resistive to medications earlier in the morning, but took them later, refused to p.m. medications, again took them later. She wanted to call her daughter and family has indicated to ration her telephone calls which she tries to make whenever she is more anxious. REVIEW OF SYSTEMS: Hard of hearing. No CV, , pulmonary, eye system symptoms on review. MENTAL STATUS EXAM: Oriented to herself. Insight, judgment, recent and remote memory, attention, concentration, fund of knowledge poor consistent with her diagnosis mentioned in my initial note. PLAN: Increase Seroquel from 25 mg t.i.d. to 37.5 mg twice a day, 25 mg once a day, Xanax p.r.n., BuSpar 5 mg t.i.d., Namenda 10 b.i.d., Depakote 125 mg t.i.d. Repeat labs level, Zoloft continue 100 mg a day. Rest unchanged for now. NORAH TOLLIVER MD DR: JUANA/villa JOB#: [id number] / [id number]
[2019-07-30 05:46] VITALS: BP 150/74
[2019-07-30] MEDS: MIRABEGRON 25 MG TAB.ER.24H PO SCH (09:07)
[2019-07-30] MEDS: DIVALPROEX 125 MG CAP.SPRINK PO SCH ×4 (09:07→17:25)
[2019-07-30] MEDS: MEMANTINE 10 MG TABLET. PO SCH ×3 (09:07→17:25)
[2019-07-30] MEDS: ASPIRIN 81 MG TAB.CHEW PO SCH (09:07)
[2019-07-30] MEDS: busPIRone 5 MG TABLET. PO SCH ×3 (09:08→20:00)
[2019-07-30] MEDS: SERTRALINE 100 MG TABLET. PO SCH (09:08)
[2019-07-30] MEDS: CETIRIZINE HCL 10 MG TABLET PO SCH (09:08)
[2019-07-30] MEDS: QUEtiapine 25 MG TABLET. PO SCH ×4 (09:08→17:24)
[2019-07-30] MEDS: ACETAMINOPHEN 500 MG TABLET PO SCH (09:08)
[2019-07-30] MEDS: FLUTICASONE 50MCG/NASAL SPRAY 16GM BOTTLE. NS SCH ×2 (09:09→20:00)
[2019-07-30 15:46] VITALS: BP 128/78
[2019-07-30] MEDS: ATORVASTATIN CALCIUM 20 MG TABLET PO SCH (20:00)
--- NOTE | 2019-07-30 21:42 | PDOC ---
Exam Note: Hever Note: Please also refer to the separate dictated note~for this date of service dictated separately.~Patient seen individually. Discussed the patient with Nursing staff reviewed the chart.~Reviewed interim history and current functioning. Reviewed vital signs,~Labs/ Radiology~and current medications noted below. Continue current treatment with the changes noted in the dictated addendum note Assessment: Vital Signs/I&O: Vital Signs Date Time Temp Pulse Resp B/P (MAP) Pulse Ox O2 Delivery O2 Flow Rate FiO2 07/30/19 15:46 98.7 60 16 128/78 (95) 96 07/30/19 05:46 Room Air I & O 07/29/19 07/29/19 07/30/19 15:00 23:00 07:00 Intake Total 600 ml 580 ml Balance 600 ml 580 ml Current Medications: I have reviewed the current psychotropics carefully including drug interactions. Risk benefit ratio favors no change other than as noted in my dictated progress note. Diagnosis: Problems: (1) Anxiety disorder (2) Major neurocognitive disorder due to Alzheimer's disease, with behavioral disturbance (3) Dementia with behavioral disturbance (4) Dementia, vascular, with delusions (5) Dementia, vascular, with depression (6) Impulse control disorder NORAH TOLLIVER MD Jul 30, 2019 21:41
--- NOTE | 2019-07-30 22:49 | PN ---
DATE: 07/29/2019 This late entry, 07/29, covers elements not covered in my initial note. SUBJECTIVE: I met with the patient evening of 07/29. According to JOSEPH Calvo, the patient slept 8-1/2 hours previous night. She has been pleasant, compliant with medications, frequently wanting to call family and staff for monitoring this closely. In the evening, she had urinated on herself, was agitated, trying to put herself on the floor, saying the staff were mean to her. Her son did come and visit. REVIEW OF SYSTEMS: Ambulation impaired with walker. No CV, , pulmonary, eye system symptoms on review. Hard of hearing. MENTAL STATUS EXAM: Oriented to herself. Insight, judgment, recent and remote memory, attention, concentration, fund of knowledge poor, consistent with her diagnosis. Remote memory is better than recent. LABORATORY DATA: Reviewed. IMPRESSION: Major neurocognitive disorder, Alzheimer, vascular with delusion, depression, behavioral disturbance; anxiety disorder, unspecified; impulse control disorder, unspecified. PLAN: Seroquel has been increased to 37.5 mg twice a day and 25 mg once a day. Continue BuSpar 5 mg t.i.d., Xanax p.r.n., Zoloft 100 mg a day, Depakote 125 mg 3 times a day. We may need to increase the Depakote if mood lability persist. Reviewed drug interactions at length and discussed with nursing staff and patient. NORAH TOLLIVER MD DR: JUANA/villa JOB#: [id number] / [id number]
[2019-07-31 06:10] VITALS: BP 161/81
[2019-07-31] MEDS: DIVALPROEX 125 MG CAP.SPRINK PO SCH ×3 (09:19→17:37)
[2019-07-31] MEDS: MEMANTINE 10 MG TABLET. PO SCH ×2 (09:19→17:38)
[2019-07-31] MEDS: CETIRIZINE HCL 10 MG TABLET PO SCH (09:19)
[2019-07-31] MEDS: ASPIRIN 81 MG TAB.CHEW PO SCH (09:19)
[2019-07-31] MEDS: ACETAMINOPHEN 500 MG TABLET PO SCH (09:19)
[2019-07-31] MEDS: QUEtiapine 25 MG TABLET. PO SCH ×3 (09:19→17:38)
[2019-07-31] MEDS: MIRABEGRON 25 MG TAB.ER.24H PO SCH (09:19)
[2019-07-31] MEDS: busPIRone 5 MG TABLET. PO SCH ×3 (09:19→20:14)
[2019-07-31] MEDS: SERTRALINE 100 MG TABLET. PO SCH (09:19)
[2019-07-31] MEDS: FLUTICASONE 50MCG/NASAL SPRAY 16GM BOTTLE. NS SCH ×2 (09:20→20:15)
[2019-07-31 16:10] VITALS: BP 131/75
[2019-07-31] MEDS: ATORVASTATIN CALCIUM 20 MG TABLET PO SCH (20:14)
--- NOTE | 2019-07-31 21:18 | PDOC ---
Exam Note: Hever Note: Please also refer to the separate dictated note~for this date of service dictated separately.~Patient seen individually. Discussed the patient with Nursing staff reviewed the chart.~Reviewed interim history and current functioning. Reviewed vital signs,~Labs/ Radiology~and current medications noted below. Continue current treatment with the changes noted in the dictated addendum note Assessment: Vital Signs/I&O: Vital Signs Date Time Temp Pulse Resp B/P (MAP) Pulse Ox O2 Delivery O2 Flow Rate FiO2 07/31/19 16:10 98.3 87 16 131/75 (93) 97 Room Air I & O 07/30/19 07/30/19 07/31/19 14:59 22:59 06:59 Intake Total 600 ml 240 ml Balance 600 ml 240 ml Current Medications: I have reviewed the current psychotropics carefully including drug interactions. Risk benefit ratio favors no change other than as noted in my dictated progress note. Diagnosis: Problems: (1) Anxiety disorder (2) Major neurocognitive disorder due to Alzheimer's disease, with behavioral disturbance (3) Dementia with behavioral disturbance (4) Dementia, vascular, with delusions (5) Dementia, vascular, with depression (6) Impulse control disorder NORAH TOLLIVER MD Jul 31, 2019 21:18
--- NOTE | 2019-07-31 22:23 | PN ---
DATE: 07/30/2019 PSYCHIATRIC PROGRESS NOTE This late entry 07/30/2019 covers elements not covered in my initial note. SUBJECTIVE: I met with the patient in the evening. The patient slept 7-1/2 hours previous night per JOSEPH Calvo. Overall, the patient has been doing well, compliant with her meals and medications and more awake, slept well previous night. REVIEW OF SYSTEMS: Hard of hearing. No CV, , pulmonary, eye system symptoms on review. MENTAL STATUS EXAM: Oriented to herself. Her insight, judgment, recent memory is impaired, remote is better. Language function intact. Attention span short. Mood and affect intermittently withdrawn. LABORATORY DATA: Reviewed. IMPRESSION: Unchanged from initial note. PLAN: No change from initial note. MAN Destiney TOLLIVER MD DR: JUANA/villa JOB#: [id number] / [id number]
[2019-08-01 06:13] VITALS: BP 134/68
[2019-08-01 07:01] LABS: BASO # 0.1 x10^3/uL (0.0-0.2); BASO % 1 % (0-3); EOS # 0.2 x10^3/uL (0.0-0.7); EOS % 4 % (0-3); HEMATOCRIT 39.3 % (36.0-47.0); HEMOGLOBIN 12.7 g/dL (12.0-15.5); LYMPH # 0.8 x10^3/uL (1.0-4.8); LYMPH % 15 % (24-48); MEAN CORPUSCULAR HEMOGLOBIN 28 pg (25-35); MEAN CORPUSCULAR HGB CONC 32 g/dL (31-37); MEAN CORPUSCULAR VOLUME 88 fL (79-100); MONO # 0.7 x10^3/uL (0.0-1.1); MONO % 13 % (0-9); NEUT # 3.7 x10^3uL (1.8-7.7); NEUT % 67 % (31-73); PLATELET COUNT 248 x10^3/uL (140-400); RED BLOOD COUNT 4.46 x10^6/uL (3.50-5.40); RED CELL DISTRIBUTION WIDTH 15.1 % (11.5-14.5); WHITE BLOOD COUNT 5.5 x10^3/uL (4.0-11.0)
[2019-08-01 07:18] LABS: ALBUMIN 3.2 g/dL (3.4-5.0); ALBUMIN/GLOBULIN RATIO 0.9 (1.0-1.7); CALCIUM 8.7 mg/dL (8.5-10.1); GFR 52.6; POTASSIUM 4.5 mmol/L (3.5-5.1); TOTAL BILIRUBIN 0.5 mg/dL (0.2-1.0); TOTAL PROTEIN 6.6 g/dL (6.4-8.2)
[2019-08-01] MEDS: DIVALPROEX 125 MG CAP.SPRINK PO SCH ×3 (09:23→17:11)
[2019-08-01] MEDS: busPIRone 5 MG TABLET. PO SCH ×3 (09:23→20:54)
[2019-08-01] MEDS: ASPIRIN 81 MG TAB.CHEW PO SCH (09:23)
[2019-08-01] MEDS: MIRABEGRON 25 MG TAB.ER.24H PO SCH (09:23)
[2019-08-01] MEDS: SERTRALINE 25 MG TABLET. PO SCH (09:24)
[2019-08-01] MEDS: QUEtiapine 25 MG TABLET. PO SCH ×3 (09:24→17:08)
[2019-08-01] MEDS: FLUTICASONE 50MCG/NASAL SPRAY 16GM BOTTLE. NS SCH ×2 (09:25→21:00)
[2019-08-01] MEDS: ACETAMINOPHEN 500 MG TABLET PO SCH (09:25)
[2019-08-01] MEDS: MEMANTINE 10 MG TABLET. PO SCH ×2 (09:25→17:08)
[2019-08-01] MEDS: SERTRALINE 100 MG TABLET. PO SCH (09:25)
[2019-08-01] MEDS: CETIRIZINE HCL 10 MG TABLET PO SCH (09:25)
--- NOTE | 2019-08-01 15:15 | PN ---
DATE: 07/31/2019 This late entry 07/31/2019 covers elements not covered in my initial note. SUBJECTIVE: I met with the patient evening of 07/31/2019. Per JOSEPH Calvo, the patient slept 9 hours previous night. She is compliant with her medications. Previous evening, she refused her supper and medications and refused lunch, but less sedated. REVIEW OF SYSTEMS: Hard of hearing. No CV, , pulmonary, eye system symptoms on review. MENTAL STATUS EXAM: Oriented to herself and situation. Speech has some latency, coherent. Abstraction fair, computation impaired, language function intact. Short term memory is impaired. Attention span short. Mood and affect slightly withdrawn. LABORATORY DATA: Reviewed. IMPRESSION: Unchanged from initial note. PLAN: No change from initial note. MAN Destiney TOLLIVER MD DR: JUANA/villa JOB#: [id number] / [id number]
[2019-08-01 15:47] VITALS: BP 120/76
[2019-08-01 16:48] LABS: BILIRUBIN,URINE NEG (NEG); CLARITY,URINE HAZY; COLOR,URINE YELLOW; GLUCOSE,URINE NEG (NEG)
[2019-08-01 16:49] LABS: BACTERIA,URINE 0 /HPF (0-FEW); HYALINE CASTS, URINE FEW /HPF; NITRITE,URINE NEG (NEG); RBC,URINE OCC /HPF (0-2); SQUAMOUS EPITHELIAL CELL,UR MOD /LPF; UROBILINOGEN,URINE 0.2 mg/dL (0.2 mg/dL)
[2019-08-01] MEDS: ATORVASTATIN CALCIUM 20 MG TABLET PO SCH (20:54)
--- NOTE | 2019-08-01 21:19 | PDOC ---
Exam Note: Hever Note: Please also refer to the separate dictated note~for this date of service dictated separately.~Patient seen individually. Discussed the patient with Nursing staff reviewed the chart.~Reviewed interim history and current functioning. Reviewed vital signs,~Labs/ Radiology~and current medications noted below. Continue current treatment with the changes noted in the dictated addendum note Assessment: Vital Signs/I&O: Vital Signs Date Time Temp Pulse Resp B/P (MAP) Pulse Ox O2 Delivery O2 Flow Rate FiO2 08/01/19 15:47 98.1 77 16 120/76 (91) 94 07/31/19 16:10 Room Air I & O 07/31/19 07/31/19 08/01/19 15:00 23:00 07:00 Intake Total 600 ml 720 ml Balance 600 ml 720 ml Labs: Laboratory Tests Test 08/01/19 06:37 08/01/19 16:10 White Blood Count 5.5 x10^3/uL (4.0-11.0) Red Blood Count 4.46 x10^6/uL (3.50-5.40) Hemoglobin 12.7 g/dL (12.0-15.5) Hematocrit 39.3 % (36.0-47.0) Mean Corpuscular Volume 88 fL (79-100) Mean Corpuscular Hemoglobin 28 pg (25-35) Mean Corpuscular Hemoglobin Concent 32 g/dL (31-37) Red Cell Distribution Width 15.1 % (11.5-14.5) H Platelet Count 248 x10^3/uL (140-400) Neutrophils (%) (Auto) 67 % (31-73) Lymphocytes (%) (Auto) 15 % (24-48) L Monocytes (%) (Auto) 13 % (0-9) H Eosinophils (%) (Auto) 4 % (0-3) H Basophils (%) (Auto) 1 % (0-3) Neutrophils # (Auto) 3.7 x10^3uL (1.8-7.7) Lymphocytes # (Auto) 0.8 x10^3/uL (1.0-4.8) L Monocytes # (Auto) 0.7 x10^3/uL (0.0-1.1) Eosinophils # (Auto) 0.2 x10^3/uL (0.0-0.7) Basophils # (Auto) 0.1 x10^3/uL (0.0-0.2) Sodium Level 143 mmol/L (136-145) Potassium Level 4.5 mmol/L (3.5-5.1) Chloride Level 108 mmol/L (98-107) H Carbon Dioxide Level 29 mmol/L (21-32) Anion Gap 6 (6-14) Blood Urea Nitrogen 21 mg/dL (7-20) H Creatinine 1.0 mg/dL (0.6-1.0) Estimated GFR (Cockcroft-Gault) 52.6 BUN/Creatinine Ratio 21 (6-20) H Glucose Level 94 mg/dL (70-99) Calcium Level 8.7 mg/dL (8.5-10.1) Total Bilirubin 0.5 mg/dL (0.2-1.0) Aspartate Amino Transferase (AST) 30 U/L (15-37) Alanine Aminotransferase (ALT) 37 U/L (14-59) Alkaline Phosphatase 89 U/L (46-116) Total Protein 6.6 g/dL (6.4-8.2) Albumin 3.2 g/dL (3.4-5.0) L Albumin/Globulin Ratio 0.9 (1.0-1.7) L Urine Collection Type Unknown Urine Color Yellow Urine Clarity Hazy Urine pH 6.0 Urine Specific [place] >=1.030 Urine Protein Trace (NEG-TRACE) Urine Glucose (UA) Neg mg/dL (NEG) Urine Ketones (Stick) Neg mg/dL (NEG) Urine Blood Neg (NEG) Urine Nitrite Neg (NEG) Urine Bilirubin Neg (NEG) Urine Urobilinogen Dipstick 0.2 mg/dL (0.2 mg/dL) Urine Leukocyte Esterase Neg (NEG) Urine RBC Occ /HPF (0-2) Urine WBC 1-4 /HPF (0-4) Urine Squamous Epithelial Cells Mod /LPF Urine Bacteria 0 /HPF (0-FEW) Urine Hyaline Casts Few /HPF Urine Mucus Slight /LPF Current Medications: Meds: Current Medications Medications (Trade) Dose Ordered Sig/Alex Route PRN Reason Start Time Stop Time Status Last Admin Dose Admin Sertraline HCl (Zoloft) 100 mg DAILY PO 08/01/19 09:00 08/01/19 09:25 Sertraline HCl (Zoloft) 25 mg DAILY PO 08/01/19 09:00 08/01/19 09:24 I have reviewed the current psychotropics carefully including drug interactions. Risk benefit ratio favors no change other than as noted in my dictated progress note. Diagnosis: Problems: (1) Anxiety disorder (2) Major neurocognitive disorder due to Alzheimer's disease, with behavioral disturbance (3) Dementia with behavioral disturbance (4) Dementia, vascular, with delusions (5) Dementia, vascular, with depression (6) Impulse control disorder NORAH TOLLIVER MD Aug 01, 2019 21:19
[2019-08-02] MEDS: ALPRAZolam 0.25 MG TABLET PO PRN ×2 (04:56→11:19)
[2019-08-02 05:43] VITALS: BP 144/96
[2019-08-02] MEDS: MIRABEGRON 25 MG TAB.ER.24H PO SCH (08:25)
[2019-08-02] MEDS: DIVALPROEX 125 MG CAP.SPRINK PO SCH ×3 (08:26→17:00)
[2019-08-02] MEDS: CETIRIZINE HCL 10 MG TABLET PO SCH (08:26)
[2019-08-02] MEDS: QUEtiapine 25 MG TABLET. PO SCH ×3 (08:27→17:00)
[2019-08-02] MEDS: MEMANTINE 10 MG TABLET. PO SCH ×2 (08:27→17:00)
[2019-08-02] MEDS: busPIRone 5 MG TABLET. PO SCH ×3 (08:28→20:12)
[2019-08-02] MEDS: ACETAMINOPHEN 500 MG TABLET PO SCH (08:28)
[2019-08-02] MEDS: SERTRALINE 100 MG TABLET. PO SCH (08:28)
[2019-08-02] MEDS: SERTRALINE 25 MG TABLET. PO SCH (08:28)
[2019-08-02] MEDS: ASPIRIN 81 MG TAB.CHEW PO SCH (08:28)
[2019-08-02] MEDS: FLUTICASONE 50MCG/NASAL SPRAY 16GM BOTTLE. NS SCH ×2 (08:29→20:11)
[2019-08-02 15:54] VITALS: BP 109/75
[2019-08-02] MEDS: ATORVASTATIN CALCIUM 20 MG TABLET PO SCH (20:12)
--- NOTE | 2019-08-02 21:58 | PDOC ---
Exam Note: Hever Note: Please also refer to the separate dictated note~for this date of service dictated separately.~Patient seen individually. Discussed the patient with Nursing staff reviewed the chart.~Reviewed interim history and current functioning. Reviewed vital signs,~Labs/ Radiology~and current medications noted below. Continue current treatment with the changes noted in the dictated addendum note Assessment: Vital Signs/I&O: Vital Signs Date Time Temp Pulse Resp B/P (MAP) Pulse Ox O2 Delivery O2 Flow Rate FiO2 08/02/19 15:54 97.4 89 20 109/75 (86) 97 07/31/19 16:10 Room Air I & O 08/01/19 08/01/19 08/02/19 15:00 23:00 07:00 Intake Total 360 ml 340 ml Balance 360 ml 340 ml Current Medications: I have reviewed the current psychotropics carefully including drug interactions. Risk benefit ratio favors no change other than as noted in my dictated progress note. Diagnosis: Problems: (1) Anxiety disorder (2) Major neurocognitive disorder due to Alzheimer's disease, with behavioral disturbance (3) Dementia with behavioral disturbance (4) Dementia, vascular, with delusions (5) Dementia, vascular, with depression (6) Impulse control disorder NORAH TOLLIVER MD Aug 02, 2019 21:58
[2019-08-03] MEDS: ALPRAZolam 0.25 MG TABLET PO PRN (00:33)
[2019-08-03 06:23] VITALS: BP 116/79
[2019-08-03] MEDS: CETIRIZINE HCL 10 MG TABLET PO SCH (08:14)
[2019-08-03] MEDS: SERTRALINE 25 MG TABLET. PO SCH (08:14)
[2019-08-03] MEDS: MEMANTINE 10 MG TABLET. PO SCH ×2 (08:14→17:43)
[2019-08-03] MEDS: ASPIRIN 81 MG TAB.CHEW PO SCH (08:14)
[2019-08-03] MEDS: busPIRone 5 MG TABLET. PO SCH ×3 (08:14→20:57)
[2019-08-03] MEDS: ACETAMINOPHEN 500 MG TABLET PO SCH (08:14)
[2019-08-03] MEDS: SERTRALINE 100 MG TABLET. PO SCH (08:14)
[2019-08-03] MEDS: QUEtiapine 25 MG TABLET. PO SCH ×3 (08:15→17:36)
[2019-08-03] MEDS: DIVALPROEX 125 MG CAP.SPRINK PO SCH ×3 (08:18→17:43)
[2019-08-03] MEDS: FLUTICASONE 50MCG/NASAL SPRAY 16GM BOTTLE. NS SCH ×2 (08:18→20:57)
[2019-08-03] MEDS: MIRABEGRON 25 MG TAB.ER.24H PO SCH (08:18)
[2019-08-03 15:56] VITALS: BP 128/81
[2019-08-03] MEDS: ATORVASTATIN CALCIUM 20 MG TABLET PO SCH (20:57)
--- NOTE | 2019-08-03 21:08 | PN ---
DATE: 08/01/2019 PSYCHIATRIC PROGRESS NOTE This late entry 08/01/2019 covers elements not covered in my initial note. SUBJECTIVE: I met with the patient in the evening and staffed at a treatment team meeting earlier in the day. The patient's son, Chase, attended the treatment team meeting. We had a lengthy discussion about the patient's diagnosis, psychotropics progress, oversedation at one point after we added Depakote and adjusted the Seroquel and therefore the trazodone schedule was stopped. We are checking a UA, make sure she does not have a UTI. Sleeping average 9 hours, slept 7-1/4 hours previous night. Appetite 65%, mostly compliant with medications, withdrawn, refused meds at times. REVIEW OF SYSTEMS: Hard of hearing. No CV, , pulmonary, eye system symptoms on review. MENTAL STATUS EXAM: Oriented to herself, at times situation. Insight, judgment, recent memory is impaired, remote is better. Language function intact. Attention span short. Mood and affect, lability, irritability, is improved, though this is still problematic at times. LABORATORY DATA: Reviewed. IMPRESSION: Major neurocognitive disorder, probably Alzheimer vascular with delusion, depression, and anxiety disorder, unspecified; impulse control disorder, unspecified. PLAN: Continue current psychotropics including Depakote, Xanax, BuSpar, Namenda, Seroquel, and Zoloft. We may need to adjust the Depakote to reach therapeutic level because at last check valproic acid level was subtherapeutic at 31, but we avoided increasing it due to her sedation, but may have to do this to control behaviorally if this problem persists. Adjust further as clinically indicated. MAN Destiney TOLLIVER MD DR: JUANA/villa JOB#: [id number] / [id number]
--- NOTE | 2019-08-03 21:10 | PN ---
DATE: 08/02/2019 This late entry, 08/02, covers elements not covered in my initial note. SUBJECTIVE: I met with the patient evening of 08/02. According to JOSEPH Rahman, the patient slept 8-1/2 hours previous night. Her daughter visited during the day, she has been anxious, crying all day. In the morning, she was dreaming that her . She is fixated on it until 4:00 p.m. and then little better. REVIEW OF SYSTEMS: No CV, , pulmonary, eye, ENT system symptoms on review. She is hard of hearing. Reliability poor. MENTAL STATUS EXAM: Oriented to herself. Insight, judgment, recent memory is impaired, remote is better. Language function intact. Attention span short. Mood and affect, lability is persist. LABORATORY DATA: Reviewed. IMPRESSION: Unchanged from initial note. PLAN: Increase Depakote Sprinkles from 125 t.i.d. to 250 b.i.d., 125 mg once a day. Check CBC, CMP, valproic acid level in 3 days. Continue rest unchanged. MAN Destiney TOLLIVER MD DR: JUANA/villa JOB#: [id number] / [id number]
--- NOTE | 2019-08-03 21:37 | PDOC ---
Exam Note: Hever Note: Please also refer to the separate dictated note~for this date of service dictated separately.~Patient seen individually. Discussed the patient with Nursing staff reviewed the chart.~Reviewed interim history and current functioning. Reviewed vital signs,~Labs/ Radiology~and current medications noted below. Continue current treatment with the changes noted in the dictated addendum note Assessment: Vital Signs/I&O: Vital Signs Date Time Temp Pulse Resp B/P (MAP) Pulse Ox O2 Delivery O2 Flow Rate FiO2 08/03/19 15:56 97.8 88 16 128/81 (97) 94 07/31/19 16:10 Room Air I & O 08/02/19 08/02/19 08/03/19 15:00 23:00 07:00 Intake Total 480 ml 600 ml Balance 480 ml 600 ml Current Medications: Meds: Current Medications Medications (Trade) Dose Ordered Sig/Alex Route PRN Reason Start Time Stop Time Status Last Admin Dose Admin Divalproex Sodium (Depakote Sprinkles) 125 mg DAILY@1300 PO 08/03/19 13:00 08/03/19 12:11 Divalproex Sodium (Depakote Sprinkles) 250 mg BID@0900,1700 PO 08/03/19 09:00 08/03/19 17:43 I have reviewed the current psychotropics carefully including drug interactions. Risk benefit ratio favors no change other than as noted in my dictated progress note. Diagnosis: Problems: (1) Anxiety disorder (2) Major neurocognitive disorder due to Alzheimer's disease, with behavioral disturbance (3) Dementia with behavioral disturbance (4) Dementia, vascular, with delusions (5) Dementia, vascular, with depression (6) Impulse control disorder NORAH TOLLIVER MD Aug 03, 2019 21:36
[2019-08-04 05:38] VITALS: BP 158/81
[2019-08-04] MEDS: DIVALPROEX 125 MG CAP.SPRINK PO SCH ×3 (08:11→17:50)
[2019-08-04] MEDS: ACETAMINOPHEN 500 MG TABLET PO SCH (08:12)
[2019-08-04] MEDS: ASPIRIN 81 MG TAB.CHEW PO SCH (08:12)
[2019-08-04] MEDS: SERTRALINE 100 MG TABLET. PO SCH (08:12)
[2019-08-04] MEDS: CETIRIZINE HCL 10 MG TABLET PO SCH (08:12)
[2019-08-04] MEDS: SERTRALINE 25 MG TABLET. PO SCH (08:12)
[2019-08-04] MEDS: busPIRone 5 MG TABLET. PO SCH ×3 (08:12→20:23)
[2019-08-04] MEDS: QUEtiapine 25 MG TABLET. PO SCH ×3 (08:12→17:50)
[2019-08-04] MEDS: MEMANTINE 10 MG TABLET. PO SCH ×2 (08:13→17:50)
[2019-08-04] MEDS: MIRABEGRON 25 MG TAB.ER.24H PO SCH (08:13)
[2019-08-04] MEDS: FLUTICASONE 50MCG/NASAL SPRAY 16GM BOTTLE. NS SCH ×2 (08:13→20:23)
[2019-08-04 15:57] VITALS: BP 153/93
[2019-08-04] MEDS: ATORVASTATIN CALCIUM 20 MG TABLET PO SCH (20:23)
--- NOTE | 2019-08-04 21:18 | PDOC ---
Exam Note: Hever Note: Please also refer to the separate dictated note~for this date of service dictated separately.~Patient seen individually. Discussed the patient with Nursing staff reviewed the chart.~Reviewed interim history and current functioning. Reviewed vital signs,~Labs/ Radiology~and current medications noted below. Continue current treatment with the changes noted in the dictated addendum note Assessment: Vital Signs/I&O: Vital Signs Date Time Temp Pulse Resp B/P (MAP) Pulse Ox O2 Delivery O2 Flow Rate FiO2 08/04/19 15:57 98.2 70 18 153/93 (113) 93 07/31/19 16:10 Room Air I & O 08/03/19 08/03/19 08/04/19 15:00 23:00 07:00 Intake Total 360 ml 240 ml 240 ml Balance 360 ml 240 ml 240 ml Current Medications: I have reviewed the current psychotropics carefully including drug interactions. Risk benefit ratio favors no change other than as noted in my dictated progress note. Diagnosis: Problems: (1) Anxiety disorder (2) Major neurocognitive disorder due to Alzheimer's disease, with behavioral disturbance (3) Dementia with behavioral disturbance (4) Dementia, vascular, with delusions (5) Dementia, vascular, with depression (6) Impulse control disorder NORAH TOLLIVER MD Aug 04, 2019 21:18
--- NOTE | 2019-08-04 23:50 | PN ---
DATE: 08/03/2019 PSYCHIATRIC PROGRESS NOTE This late entry of 08/03 covers elements not covered in my initial note. SUBJECTIVE: Per Lacey RN, the patient slept 6 hours the previous night. She has been a little sedated at times, but generally better. No overt delusions noted. Previous evening, per nursing report, she was delusional, looking for 2 girls from [place] and had a dream that her . She woke up at 2:00 a.m., had her bags packed, ready to leave. technology education teacher, she was naked, undressed and was making statements that staff was trying to rape her. When she gets more confused, especially with owning, she gets somewhat more paranoid. REVIEW OF SYSTEMS: No CV, , pulmonary, eye, ENT system symptoms on review. She is hard of hearing. Reliability poor due to memory deficits. MENTAL STATUS EXAMINATION: Oriented to herself. Insight, judgment, recent and remote memory, attention, concentration, fund of knowledge poor; consistent with her diagnosis mentioned in my initial note. PLAN: No change from initial note. NORAH TOLLIVER MD DR: JUANA/villa JOB#: [id number] / [id number]
[2019-08-05 05:49] VITALS: BP 137/68
[2019-08-05] MEDS: FLUTICASONE 50MCG/NASAL SPRAY 16GM BOTTLE. NS SCH ×2 (08:35→20:25)
[2019-08-05] MEDS: busPIRone 5 MG TABLET. PO SCH ×3 (08:35→20:24)
[2019-08-05] MEDS: ACETAMINOPHEN 500 MG TABLET PO SCH (08:35)
[2019-08-05] MEDS: DIVALPROEX 125 MG CAP.SPRINK PO SCH ×3 (08:35→17:23)
[2019-08-05] MEDS: MEMANTINE 10 MG TABLET. PO SCH ×2 (08:36→17:23)
[2019-08-05] MEDS: MIRABEGRON 25 MG TAB.ER.24H PO SCH (08:36)
[2019-08-05] MEDS: QUEtiapine 25 MG TABLET. PO SCH ×3 (08:36→17:23)
[2019-08-05] MEDS: SERTRALINE 100 MG TABLET. PO SCH (08:37)
[2019-08-05] MEDS: SERTRALINE 25 MG TABLET. PO SCH (08:37)
[2019-08-05] MEDS: CETIRIZINE HCL 10 MG TABLET PO SCH (08:37)
[2019-08-05] MEDS: ASPIRIN 81 MG TAB.CHEW PO SCH (08:37)
[2019-08-05 16:20] VITALS: BP 155/93
--- NOTE | 2019-08-05 19:32 | PN ---
DATE: 08/04/2019 PSYCHIATRIC PROGRESS NOTE This late entry 08/04/2019 covers elements not covered in my initial note. SUBJECTIVE: I met with the patient in the evening. Per JOSEPH Calvo, the patient slept 7-3/4 hours previous night. She has been compliant with the medications, has spent much of the day in the day room. She was in bed for breakfast, did not eat any lunch, refused medications, took them later by coaxing. UA is negative. Labs to be checked on the 08/06/2019 for her Depakote level before we adjusted. REVIEW OF SYSTEMS: Hard of hearing. No CV, , pulmonary, eye system symptoms on review, met with her in her room. MENTAL STATUS EXAM: Oriented to herself. Insight, judgment, recent and remote memory, attention, concentration, fund of knowledge poor consistent with her diagnoses. IMPRESSION: Unchanged from initial note. PLAN: No change from initial note. We will monitor her sedation and then decide on changing her psychotropics the next set of labs on 08/06/2019. MAN Destiney TOLLIVER MD DR: JUANA/villa JOB#: [id number] / [id number]
[2019-08-05] MEDS: ATORVASTATIN CALCIUM 20 MG TABLET PO SCH (20:25)
--- NOTE | 2019-08-05 21:16 | PDOC ---
Exam Note: Hever Note: Please also refer to the separate dictated note~for this date of service dictated separately.~Patient seen individually. Discussed the patient with Nursing staff reviewed the chart.~Reviewed interim history and current functioning. Reviewed vital signs,~Labs/ Radiology~and current medications noted below. Continue current treatment with the changes noted in the dictated addendum note Assessment: Vital Signs/I&O: Vital Signs Date Time Temp Pulse Resp B/P (MAP) Pulse Ox O2 Delivery O2 Flow Rate FiO2 08/05/19 16:20 97.7 97 18 155/93 (113) 94 07/31/19 16:10 Room Air I & O 08/04/19 08/04/19 08/05/19 15:00 23:00 07:00 Intake Total 600 ml 240 ml 100 ml Balance 600 ml 240 ml 100 ml Current Medications: I have reviewed the current psychotropics carefully including drug interactions. Risk benefit ratio favors no change other than as noted in my dictated progress note. Diagnosis: Problems: (1) Anxiety disorder (2) Major neurocognitive disorder due to Alzheimer's disease, with behavioral disturbance (3) Dementia with behavioral disturbance (4) Dementia, vascular, with delusions (5) Dementia, vascular, with depression (6) Impulse control disorder NORAH TOLLIVER MD Aug 05, 2019 21:16
[2019-08-06 05:34] VITALS: BP 122/73
[2019-08-06 07:36] LABS: BASO % 1 % (0-3); EOS # 0.3 x10^3/uL (0.0-0.7); EOS % 6 % (0-3); HEMATOCRIT 38.7 % (36.0-47.0); HEMOGLOBIN 12.5 g/dL (12.0-15.5); LYMPH # 0.9 x10^3/uL (1.0-4.8); LYMPH % 18 % (24-48); MEAN CORPUSCULAR HEMOGLOBIN 29 pg (25-35); MEAN CORPUSCULAR HGB CONC 32 g/dL (31-37); MEAN CORPUSCULAR VOLUME 89 fL (79-100); MONO # 0.8 x10^3/uL (0.0-1.1); MONO % 16 % (0-9); NEUT % 60 % (31-73); PLATELET COUNT 235 x10^3/uL (140-400); RED BLOOD COUNT 4.37 x10^6/uL (3.50-5.40); RED CELL DISTRIBUTION WIDTH 15.1 % (11.5-14.5)
[2019-08-06 07:57] LABS: ALBUMIN 3.2 g/dL (3.4-5.0); ALK PHOS 99 U/L (46-116); ALT (SGPT) 26 U/L (14-59); ANION GAP 6 (6-14); AST (SGOT) 20 U/L (15-37); BLOOD UREA NITROGEN 24 mg/dL (7-20); BUN/CREATININE RATIO 24 (6-20); CALCIUM 8.7 mg/dL (8.5-10.1); CARBON DIOXIDE 31 mmol/L (21-32); CHLORIDE 107 mmol/L (98-107); GFR 52.6; GLUCOSE 90 mg/dL (70-99); POTASSIUM 4.4 mmol/L (3.5-5.1); SODIUM 144 mmol/L (136-145); TOTAL BILIRUBIN 0.4 mg/dL (0.2-1.0); TOTAL PROTEIN 6.4 g/dL (6.4-8.2)
[2019-08-06 08:01] LABS: VAL ACID 51 mcg/mL (50-100)
[2019-08-06] MEDS: ACETAMINOPHEN 500 MG TABLET PO SCH (08:17)
[2019-08-06] MEDS: busPIRone 5 MG TABLET. PO SCH ×3 (08:17→21:00)
[2019-08-06] MEDS: ASPIRIN 81 MG TAB.CHEW PO SCH (08:17)
[2019-08-06] MEDS: SERTRALINE 100 MG TABLET. PO SCH (08:18)
[2019-08-06] MEDS: CETIRIZINE HCL 10 MG TABLET PO SCH (08:18)
[2019-08-06] MEDS: SERTRALINE 25 MG TABLET. PO SCH (08:18)
[2019-08-06] MEDS: MEMANTINE 10 MG TABLET. PO SCH ×2 (08:18→17:27)
[2019-08-06] MEDS: QUEtiapine 25 MG TABLET. PO SCH ×3 (08:18→17:27)
[2019-08-06] MEDS: DIVALPROEX 125 MG CAP.SPRINK PO SCH ×3 (08:18→17:27)
[2019-08-06] MEDS: MIRABEGRON 25 MG TAB.ER.24H PO SCH (08:18)
[2019-08-06] MEDS: FLUTICASONE 50MCG/NASAL SPRAY 16GM BOTTLE. NS SCH ×2 (08:19→21:00)
[2019-08-06 16:06] VITALS: BP 133/71
[2019-08-06] MEDS: ATORVASTATIN CALCIUM 20 MG TABLET PO SCH (21:00)
--- NOTE | 2019-08-06 21:16 | PDOC ---
Exam Note: Hever Note: Please also refer to the separate dictated note~for this date of service dictated separately.~Patient seen individually. Discussed the patient with Nursing staff reviewed the chart.~Reviewed interim history and current functioning. Reviewed vital signs,~Labs/ Radiology~and current medications noted below. Continue current treatment with the changes noted in the dictated addendum note Assessment: Vital Signs/I&O: Vital Signs Date Time Temp Pulse Resp B/P (MAP) Pulse Ox O2 Delivery O2 Flow Rate FiO2 08/06/19 16:06 97.6 70 16 133/71 (91) 93 07/31/19 16:10 Room Air I & O 08/05/19 08/05/19 08/06/19 15:00 23:00 07:00 Intake Total 720 ml 480 ml 240 ml Balance 720 ml 480 ml 240 ml Labs: Laboratory Tests Test 08/06/19 07:10 White Blood Count 5.0 x10^3/uL (4.0-11.0) Red Blood Count 4.37 x10^6/uL (3.50-5.40) Hemoglobin 12.5 g/dL (12.0-15.5) Hematocrit 38.7 % (36.0-47.0) Mean Corpuscular Volume 89 fL (79-100) Mean Corpuscular Hemoglobin 29 pg (25-35) Mean Corpuscular Hemoglobin Concent 32 g/dL (31-37) Red Cell Distribution Width 15.1 % (11.5-14.5) H Platelet Count 235 x10^3/uL (140-400) Neutrophils (%) (Auto) 60 % (31-73) Lymphocytes (%) (Auto) 18 % (24-48) L Monocytes (%) (Auto) 16 % (0-9) H Eosinophils (%) (Auto) 6 % (0-3) H Basophils (%) (Auto) 1 % (0-3) Neutrophils # (Auto) 3.0 x10^3uL (1.8-7.7) Lymphocytes # (Auto) 0.9 x10^3/uL (1.0-4.8) L Monocytes # (Auto) 0.8 x10^3/uL (0.0-1.1) Eosinophils # (Auto) 0.3 x10^3/uL (0.0-0.7) Basophils # (Auto) 0.0 x10^3/uL (0.0-0.2) Sodium Level 144 mmol/L (136-145) Potassium Level 4.4 mmol/L (3.5-5.1) Chloride Level 107 mmol/L (98-107) Carbon Dioxide Level 31 mmol/L (21-32) Anion Gap 6 (6-14) Blood Urea Nitrogen 24 mg/dL (7-20) H Creatinine 1.0 mg/dL (0.6-1.0) Estimated GFR (Cockcroft-Gault) 52.6 BUN/Creatinine Ratio 24 (6-20) H Glucose Level 90 mg/dL (70-99) Calcium Level 8.7 mg/dL (8.5-10.1) Total Bilirubin 0.4 mg/dL (0.2-1.0) Aspartate Amino Transferase (AST) 20 U/L (15-37) Alanine Aminotransferase (ALT) 26 U/L (14-59) Alkaline Phosphatase 99 U/L (46-116) Total Protein 6.4 g/dL (6.4-8.2) Albumin 3.2 g/dL (3.4-5.0) L Albumin/Globulin Ratio 1.0 (1.0-1.7) Valproic Acid Level 51 mcg/mL (50-100) Valproic Acid Last Dose Date 08/05/19 Valproic Acid Last Dose Time 1700 Current Medications: I have reviewed the current psychotropics carefully including drug interactions. Risk benefit ratio favors no change other than as noted in my dictated progress note. Diagnosis: Problems: (1) Anxiety disorder (2) Major neurocognitive disorder due to Alzheimer's disease, with behavioral disturbance (3) Dementia with behavioral disturbance (4) Dementia, vascular, with delusions (5) Dementia, vascular, with depression (6) Impulse control disorder NORAH TOLLIVER MD Aug 06, 2019 21:16
--- NOTE | 2019-08-06 21:27 | PN ---
DATE: 08/05/2019 PSYCHIATRIC PROGRESS NOTE This late entry 08/05/2019 covers elements not covered in my initial note. SUBJECTIVE: I met with the patient evening of 08/05/2019. Per JOSEPH Calvo, the patient slept 9-1/2 hours previous night. She spent the morning in the day room and after lunch, she had a nap. A manager nursing went into her room late into her nap and the patient even though she was awake she got startled as the room was dark and she was yelling at times, but then settled down gradually. REVIEW OF SYSTEMS: Hard of hearing. No CV, , pulmonary, eye system symptoms on review. MENTAL STATUS EXAM: Oriented to herself. Insight, judgment, recent and remote memory, attention, concentration, fund of knowledge poor, consistent with her diagnosis mentioned in my initial note. PLAN: No change from initial note. MAN Destiney TOLLIVER MD DR: JUANA/villa JOB#: [id number] / [id number]
[2019-08-07 05:36] VITALS: BP 179/66
[2019-08-07] MEDS: MIRABEGRON 25 MG TAB.ER.24H PO SCH (09:23)
[2019-08-07] MEDS: MEMANTINE 10 MG TABLET. PO SCH ×2 (09:23→17:11)
[2019-08-07] MEDS: ASPIRIN 81 MG TAB.CHEW PO SCH (09:23)
[2019-08-07] MEDS: ACETAMINOPHEN 500 MG TABLET PO SCH (09:23)
[2019-08-07] MEDS: CETIRIZINE HCL 10 MG TABLET PO SCH (09:23)
[2019-08-07] MEDS: DIVALPROEX 125 MG CAP.SPRINK PO SCH ×3 (09:23→17:11)
[2019-08-07] MEDS: busPIRone 5 MG TABLET. PO SCH ×3 (09:23→20:27)
[2019-08-07] MEDS: SERTRALINE 25 MG TABLET. PO SCH (09:23)
[2019-08-07] MEDS: SERTRALINE 100 MG TABLET. PO SCH (09:24)
[2019-08-07] MEDS: QUEtiapine 25 MG TABLET. PO SCH ×3 (09:24→17:11)
[2019-08-07] MEDS: FLUTICASONE 50MCG/NASAL SPRAY 16GM BOTTLE. NS SCH ×2 (09:24→20:28)
--- NOTE | 2019-08-07 10:57 | TX PLAN ---
Interdisciplinary Tx Plan Admission Information Jul 16, 2019 at 17:27 Legal Status (on Admission): Voluntary DPOA/Guardian Name: Asia Singleton Contact Other Contact Name: [facility] Other Contact Verified Code Status: DNR Allergies: Coded Allergies: mold (Verified Allergy, Unknown, 07/16/19) Diagnoses Primary Diagnosis: Major Neurocognitive D/O vascular alzheimers with depression, delusions and BPD; Impulse Control D/O, and Anxiety D/O unspecified Reasons for Admission: Aggressive, Delusions, Agitated, Hallucinations, Confusion/Disoriented Problem in Patient's Words: Per patient daughter: Patient has been "going downhill" since October 2016. Recently, pt will have an "intensive meltdown" about every 1.5 weeks. Pt is often confused and tries to leave facility to look for or older brother. Pt also "looks doped up" and has been sleeping "a lot more in the past couple months." Additional Admission Comments: Pt is aggressive with memory care staff at times, agitated, delusional,irritable, cyclical with good/bad days, trying to leave facility wandering, sobbing episodes, insomnia, hallucinations. Problems Active Problems: Increased anxiety Visual hallucinations Exit seeking Reports of aggression/agitated with staff Inactive Problems: Medication Mgmt Pt Strengths/Limitations Ability for [place]: Poor Cognitive Functioning/Ability: Poor Communication Skills/Ability: Fair Financial Resources: Fair Insight/Judgement: Poor Intellectual Ability: Poor Physical Health: Fair Social Skills: Fair Stability in Family: Good Stability in School/Work: Poor Verbal Skills: Fair Discharge Criteria Discharge Criteria: No need for close observ., Adequate arrangements @DC, Improved behavior, Improved mood/thought Preliminary Discharge Plan Preliminary DC Plan: Memory Care Special Precautions Fall Risk: Low Initial D/C Plan Pt will plan to return to [facility] Identified Discharge Needs: Recommendation for continued mental health follow-up with psychiatrist. Currently Utilized Resources Currently Utilized Resources/P: Has a primary care physician with Dr. Obrien Referrals Community Resources: Psychiatric Follow-up Identified Problems/Hx/Goals Objectives/Short-Term Goals Short Term Goals: Dec. Aggression, Dec. Anxiety/Panic, Dec. Hallucination/Delus, Dec. Symp. Depression, Medication Stabilization, Monitor Med Effects Short Term Goals in Patient's: Medication and Behavioral Management Interventions/Frequency Staff Interventions/Frequency&: Psychiatrist to see pt at least 3x per week. Cafeteria Team Leader to see pt at lease 2x per week. Nursing to complete 15 minute checks daily. Encourage participation in group activities. 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 Education: Pt graduated high school and attended some college courses. Community Follow-up Continue follow-up with PCP Community Provider/Family Inpu: With pt aggression and exit seeking behaviors, she will need to be stabilized before being able to return to placement. Treatment Plan Explained Patient/Shipping Manager had this treatment plan explained to him/her as indicated by the signature below and has been given the opportunity to ask questions and make suggestions: Date: Patient/Shipping Manager Signature: Status Update Update Pt is eating roughly 50-75% of meals and sleeping on average 8.5 hours a night. Pt continues to be isolative and needs encouragement to participate in group. Pt is medication compliant but reports some drowsiness. Pt is on Buspar, Seroquel and Depakote. Pt does have periods of outbursts when redirected and staff are encouraging her to sit in the day room and participate in groups. Pt at this time, will attempt to discharge towards the middle of next week. SW to continue to working with pt family and [facility]. TANYA PARRISH Aug 07, 2019 10:57
[2019-08-07 15:46] VITALS: BP 127/75
[2019-08-07] MEDS: ATORVASTATIN CALCIUM 20 MG TABLET PO SCH (20:28)
--- NOTE | 2019-08-07 21:21 | PDOC ---
Exam Note: Hever Note: Please also refer to the separate dictated note~for this date of service dictated separately.~Patient seen individually. Discussed the patient with Nursing staff reviewed the chart.~Reviewed interim history and current functioning. Reviewed vital signs,~Labs/ Radiology~and current medications noted below. Continue current treatment with the changes noted in the dictated addendum note Assessment: Vital Signs/I&O: Vital Signs Date Time Temp Pulse Resp B/P (MAP) Pulse Ox O2 Delivery O2 Flow Rate FiO2 08/07/19 15:46 98.2 73 18 127/75 (92) 96 08/07/19 05:36 Room Air I & O 08/06/19 08/06/19 08/07/19 15:00 23:00 07:00 Intake Total 840 ml 600 ml Balance 840 ml 600 ml Current Medications: I have reviewed the current psychotropics carefully including drug interactions. Risk benefit ratio favors no change other than as noted in my dictated progress note. Diagnosis: Problems: (1) Anxiety disorder (2) Major neurocognitive disorder due to Alzheimer's disease, with behavioral disturbance (3) Dementia with behavioral disturbance (4) Dementia, vascular, with delusions (5) Dementia, vascular, with depression (6) Impulse control disorder NORAH TOLLIVER MD Aug 07, 2019 21:21
[2019-08-08 06:36] VITALS: BP 147/84
[2019-08-08] MEDS: DIVALPROEX 125 MG CAP.SPRINK PO SCH ×3 (08:37→17:15)
[2019-08-08] MEDS: busPIRone 5 MG TABLET. PO SCH ×3 (08:37→21:26)
[2019-08-08] MEDS: SERTRALINE 25 MG TABLET. PO SCH (08:37)
[2019-08-08] MEDS: CETIRIZINE HCL 10 MG TABLET PO SCH (08:37)
[2019-08-08] MEDS: FLUTICASONE 50MCG/NASAL SPRAY 16GM BOTTLE. NS SCH ×2 (08:37→21:25)
[2019-08-08] MEDS: QUEtiapine 25 MG TABLET. PO SCH ×3 (08:37→17:15)
[2019-08-08] MEDS: ASPIRIN 81 MG TAB.CHEW PO SCH (08:37)
[2019-08-08] MEDS: SERTRALINE 100 MG TABLET. PO SCH (08:37)
[2019-08-08] MEDS: MIRABEGRON 25 MG TAB.ER.24H PO SCH (08:38)
[2019-08-08] MEDS: ACETAMINOPHEN 500 MG TABLET PO SCH (08:38)
[2019-08-08] MEDS: MEMANTINE 10 MG TABLET. PO SCH ×2 (08:38→17:15)
--- NOTE | 2019-08-08 12:29 | PN ---
DATE: 08/07/2019 PSYCHIATRIC PROGRESS NOTE This late entry 08/07/2019 covers elements not covered in my initial note. SUBJECTIVE: I met with the patient evening of 08/07/2019 and staffed at a treatment team meeting with the entire team in the morning. The patient's son, Chase was to attend, but was unavailable. She has attended 3 groups per [facility] activity therapy. Appetite 100%, slept 9 hours previous night, compliant with medications, somewhat isolated. REVIEW OF SYSTEMS: Hard of hearing. No CV, , pulmonary, eye system symptoms on review. MENTAL STATUS EXAM: Oriented to herself, at times situation. Speech has some latency, very pleasant, verbal, smiling as I met with her at length in the evening. Abstraction fair, computation impaired, language function intact. Mood and affect less anxious and labile. LABORATORY DATA: Reviewed. IMPRESSION: Unchanged from initial note. PLAN: No change from initial note. NORAH TOLLIVER MD DR: JUANA/villa JOB#: [id number] / [id number]
--- NOTE | 2019-08-08 14:56 | PN ---
DATE: 08/06/2019 PSYCHIATRIC PROGRESS NOTE This late entry 08/06/2019 covers elements not covered in my initial note. SUBJECTIVE: I met with the patient in the evening. Per Lubna RN, patient slept 9-1/2 hours previous night. She has been coming out of the dayroom somewhat more had a better day, took a nap in the afternoon, had visitors later in the evening. REVIEW OF SYSTEMS: Hard of hearing. No CV, , pulmonary, eye system symptoms on review. MENTAL STATUS EXAM: Oriented to herself, at times situation. Insight, judgment, recent and remote memory, attention, concentration, fund of knowledge poor, consistent with her diagnosis mentioned in my initial note. PLAN: No change from initial note. MAN Destiney TOLLIVER MD DR: JUANA/villa JOB#: [id number] / [id number]
[2019-08-08 16:14] VITALS: BP 138/83
--- NOTE | 2019-08-08 21:16 | PDOC ---
Exam Note: Hever Note: Please also refer to the separate dictated note~for this date of service dictated separately.~Patient seen individually. Discussed the patient with Nursing staff reviewed the chart.~Reviewed interim history and current functioning. Reviewed vital signs,~Labs/ Radiology~and current medications noted below. Continue current treatment with the changes noted in the dictated addendum note Assessment: Vital Signs/I&O: Vital Signs Date Time Temp Pulse Resp B/P (MAP) Pulse Ox O2 Delivery O2 Flow Rate FiO2 08/08/19 16:14 98.4 73 18 138/83 (101) 98 08/08/19 06:36 Room Air I & O 08/07/19 08/07/19 08/08/19 15:00 23:00 07:00 Intake Total 960 ml 480 ml 240 ml Balance 960 ml 480 ml 240 ml Current Medications: I have reviewed the current psychotropics carefully including drug interactions. Risk benefit ratio favors no change other than as noted in my dictated progress note. Diagnosis: Problems: (1) Anxiety disorder (2) Major neurocognitive disorder due to Alzheimer's disease, with behavioral disturbance (3) Dementia with behavioral disturbance (4) Dementia, vascular, with delusions (5) Dementia, vascular, with depression (6) Impulse control disorder NORAH TOLLIVER MD Aug 08, 2019 21:16
[2019-08-08] MEDS: ATORVASTATIN CALCIUM 20 MG TABLET PO SCH (21:26)
[2019-08-09 06:21] VITALS: BP 116/73
[2019-08-09] MEDS: DIVALPROEX 125 MG CAP.SPRINK PO SCH ×3 (08:16→17:27)
[2019-08-09] MEDS: ACETAMINOPHEN 500 MG TABLET PO SCH (08:16)
[2019-08-09] MEDS: ASPIRIN 81 MG TAB.CHEW PO SCH (08:16)
[2019-08-09] MEDS: MIRABEGRON 25 MG TAB.ER.24H PO SCH (08:16)
[2019-08-09] MEDS: busPIRone 5 MG TABLET. PO SCH ×3 (08:16→21:13)
[2019-08-09] MEDS: MEMANTINE 10 MG TABLET. PO SCH ×2 (08:16→17:27)
[2019-08-09] MEDS: CETIRIZINE HCL 10 MG TABLET PO SCH (08:16)
[2019-08-09] MEDS: SERTRALINE 100 MG TABLET. PO SCH (08:17)
[2019-08-09] MEDS: SERTRALINE 25 MG TABLET. PO SCH (08:17)
[2019-08-09] MEDS: QUEtiapine 25 MG TABLET. PO SCH ×3 (08:18→17:27)
[2019-08-09] MEDS: FLUTICASONE 50MCG/NASAL SPRAY 16GM BOTTLE. NS SCH ×2 (08:18→21:12)
[2019-08-09 16:15] VITALS: BP 104/64
[2019-08-09] MEDS: ATORVASTATIN CALCIUM 20 MG TABLET PO SCH (21:12)
--- NOTE | 2019-08-09 21:15 | PDOC ---
Exam Note: Hever Note: Please also refer to the separate dictated note~for this date of service dictated separately.~Patient seen individually. Discussed the patient with Nursing staff reviewed the chart.~Reviewed interim history and current functioning. Reviewed vital signs,~Labs/ Radiology~and current medications noted below. Continue current treatment with the changes noted in the dictated addendum note Assessment: Vital Signs/I&O: Vital Signs Date Time Temp Pulse Resp B/P (MAP) Pulse Ox O2 Delivery O2 Flow Rate FiO2 08/09/19 16:15 97.6 84 18 104/64 (77) 97 Room Air I & O 08/08/19 08/08/19 08/09/19 15:00 23:00 07:00 Intake Total 960 ml 480 ml Balance 960 ml 480 ml Current Medications: I have reviewed the current psychotropics carefully including drug interactions. Risk benefit ratio favors no change other than as noted in my dictated progress note. Diagnosis: Problems: (1) Anxiety disorder (2) Major neurocognitive disorder due to Alzheimer's disease, with behavioral disturbance (3) Dementia with behavioral disturbance (4) Dementia, vascular, with delusions (5) Dementia, vascular, with depression (6) Impulse control disorder NORAH TOLLIVER MD Aug 09, 2019 21:15
[2019-08-10 06:28] VITALS: BP 120/87
[2019-08-10] MEDS: CETIRIZINE HCL 10 MG TABLET PO SCH (08:35)
[2019-08-10] MEDS: MIRABEGRON 25 MG TAB.ER.24H PO SCH (08:35)
[2019-08-10] MEDS: MEMANTINE 10 MG TABLET. PO SCH ×2 (08:35→17:15)
[2019-08-10] MEDS: SERTRALINE 25 MG TABLET. PO SCH (08:35)
[2019-08-10] MEDS: DIVALPROEX 125 MG CAP.SPRINK PO SCH ×3 (08:35→17:15)
[2019-08-10] MEDS: busPIRone 5 MG TABLET. PO SCH ×3 (08:35→20:57)
[2019-08-10] MEDS: SERTRALINE 100 MG TABLET. PO SCH (08:35)
[2019-08-10] MEDS: ACETAMINOPHEN 500 MG TABLET PO SCH (08:35)
[2019-08-10] MEDS: ASPIRIN 81 MG TAB.CHEW PO SCH (08:35)
[2019-08-10] MEDS: QUEtiapine 25 MG TABLET. PO SCH ×3 (08:36→17:15)
[2019-08-10] MEDS: FLUTICASONE 50MCG/NASAL SPRAY 16GM BOTTLE. NS SCH ×2 (08:37→20:57)
[2019-08-10 16:12] VITALS: BP 114/59
[2019-08-10] MEDS: ATORVASTATIN CALCIUM 20 MG TABLET PO SCH (20:58)
--- NOTE | 2019-08-10 21:22 | PDOC ---
Exam Note: Hever Note: Please also refer to the separate dictated note~for this date of service dictated separately.~Patient seen individually. Discussed the patient with Nursing staff reviewed the chart.~Reviewed interim history and current functioning. Reviewed vital signs,~Labs/ Radiology~and current medications noted below. Continue current treatment with the changes noted in the dictated addendum note Assessment: Vital Signs/I&O: Vital Signs Date Time Temp Pulse Resp B/P (MAP) Pulse Ox O2 Delivery O2 Flow Rate FiO2 08/10/19 16:12 97.8 88 18 114/59 (77) 96 08/09/19 16:15 Room Air I & O 08/09/19 08/09/19 08/10/19 15:00 23:00 07:00 Intake Total 700 ml Balance 700 ml Current Medications: I have reviewed the current psychotropics carefully including drug interactions. Risk benefit ratio favors no change other than as noted in my dictated progress note. Diagnosis: Problems: (1) Anxiety disorder (2) Major neurocognitive disorder due to Alzheimer's disease, with behavioral disturbance (3) Dementia with behavioral disturbance (4) Dementia, vascular, with delusions (5) Dementia, vascular, with depression (6) Impulse control disorder NORHA TOLLIVER MD Aug 10, 2019 21:22
--- NOTE | 2019-08-10 23:18 | PN ---
DATE: 08/08/2019 PSYCHIATRIC PROGRESS NOTE This late entry of 08/08/2019 covers elements not covered in my initial note. SUBJECTIVE: I met with the patient in the evening of 08/08/2019. Per JOSEPH Mendoza, the patient slept 8-1/2 hours previous night. She has been less withdrawn, less tired, attended groups in the morning and in the afternoon more interactive. REVIEW OF SYSTEMS: Hard of hearing. No CV, , pulmonary, eye system symptoms on review. Reliability poor. MENTAL STATUS EXAM: Oriented to herself, at times situation. Insight, judgment, recent memory is impaired, remote is better. Language function intact. Attention span short. Mood and affect less withdrawn. LABORATORY DATA: Reviewed. IMPRESSION: Unchanged from initial note. PLAN: No change from initial note. MAN Destiney TOLLIVER MD DR: JUANA/villa JOB#: [id number] / [id number]
[2019-08-11 05:55] VITALS: BP 139/67
[2019-08-11] MEDS: ASPIRIN 81 MG TAB.CHEW PO SCH (08:05)
[2019-08-11] MEDS: MIRABEGRON 25 MG TAB.ER.24H PO SCH (08:05)
[2019-08-11] MEDS: SERTRALINE 100 MG TABLET. PO SCH (08:05)
[2019-08-11] MEDS: DIVALPROEX 125 MG CAP.SPRINK PO SCH ×3 (08:05→17:13)
[2019-08-11] MEDS: FLUTICASONE 50MCG/NASAL SPRAY 16GM BOTTLE. NS SCH ×2 (08:05→20:51)
[2019-08-11] MEDS: QUEtiapine 25 MG TABLET. PO SCH ×3 (08:06→17:13)
[2019-08-11] MEDS: ACETAMINOPHEN 500 MG TABLET PO SCH (08:06)
[2019-08-11] MEDS: CETIRIZINE HCL 10 MG TABLET PO SCH (08:06)
[2019-08-11] MEDS: busPIRone 5 MG TABLET. PO SCH ×3 (08:06→20:51)
[2019-08-11] MEDS: SERTRALINE 25 MG TABLET. PO SCH (08:06)
[2019-08-11] MEDS: MEMANTINE 10 MG TABLET. PO SCH ×2 (08:06→17:13)
--- NOTE | 2019-08-11 11:34 | PN ---
DATE: 08/10/2019 PSYCHIATRIC PROGRESS NOTE This late entry 08/10/2019 covers elements not covered in my initial note. SUBJECTIVE: I met with the patient in the evening in her room. The patient slept 10 hours previous night per JOSEPH Donovan. She has been withdrawn, did eat all 3 meals. No PRNs given. REVIEW OF SYSTEMS: Hard of hearing. No CV, , pulmonary, eye system symptoms on review. MENTAL STATUS EXAM: Oriented to herself. Insight, judgment, recent memory is impaired. Language function intact. Attention span short. Mood and affect withdrawn, but improved. LABORATORY DATA: Reviewed. IMPRESSION: Unchanged from initial note. PLAN: No change from initial note. NORAH TOLLIVER MD DR: JUANA/villa JOB#: [id number] / [id number]
[2019-08-11 15:47] VITALS: BP 137/92
--- NOTE | 2019-08-11 20:15 | PN ---
DATE: 08/09/2019 PSYCHIATRIC PROGRESS NOTE This late entry 08/09/2019 covers elements not covered in my initial note. SUBJECTIVE: I met with the patient evening of 08/09/2019. The patient slept 8-3/4 hours previous night per JOSEPH Donovan. She has been somewhat withdrawn, did come to the day room, ate breakfast, lunch; but nothing for dinner. I met with her in her room at length in the evening. REVIEW OF SYSTEMS: Hard of hearing, some tiredness. No CV, , pulmonary, eye system symptoms on review. MENTAL STATUS EXAM: Oriented to herself, at times situation. Speech has some latency, coherent. Abstraction fair, computation impaired, language function intact, attention span short. Mood and affect withdrawn. LABORATORY DATA: Reviewed. IMPRESSION: Unchanged from initial note. PLAN: No change from initial note. MAN Destiney TOLLIVER MD DR: JUANA/villa JOB#: [id number] / [id number]
[2019-08-11] MEDS: ATORVASTATIN CALCIUM 20 MG TABLET PO SCH (20:51)
--- NOTE | 2019-08-11 21:15 | PDOC ---
Exam Note: Hever Note: Please also refer to the separate dictated note~for this date of service dictated separately.~Patient seen individually. Discussed the patient with Nursing staff reviewed the chart.~Reviewed interim history and current functioning. Reviewed vital signs,~Labs/ Radiology~and current medications noted below. Continue current treatment with the changes noted in the dictated addendum note Assessment: Vital Signs/I&O: Vital Signs Date Time Temp Pulse Resp B/P (MAP) Pulse Ox O2 Delivery O2 Flow Rate FiO2 08/11/19 15:47 97.4 88 18 137/92 (107) 96 08/09/19 16:15 Room Air I & O 08/10/19 08/10/19 08/11/19 15:00 23:00 07:00 Intake Total 840 ml 240 ml 100 ml Balance 840 ml 240 ml 100 ml Current Medications: I have reviewed the current psychotropics carefully including drug interactions. Risk benefit ratio favors no change other than as noted in my dictated progress note. 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
[2019-08-12] MEDS ORDERED: DIVA125C2 PO ×2 (01:15)
[2019-08-12] MEDS ORDERED: MAG-115 PO (01:16)
[2019-08-12] MEDS ORDERED: QUET25TA5 PO ×2 (01:17→01:18)
[2019-08-12] MEDS ORDERED: MAGN24003 PO (01:17)
[2019-08-12] MEDS ORDERED: SERT25TA PO (01:19)
[2019-08-12] MEDS ORDERED: METH28OI2 TP (01:19)
[2019-08-12 06:05] VITALS: BP 131/67
[2019-08-12] MEDS: MIRABEGRON 25 MG TAB.ER.24H PO SCH (08:45)
[2019-08-12] MEDS: CETIRIZINE HCL 10 MG TABLET PO SCH (08:45)
[2019-08-12] MEDS: busPIRone 5 MG TABLET. PO SCH ×2 (08:45→12:12)
[2019-08-12] MEDS: ASPIRIN 81 MG TAB.CHEW PO SCH (08:46)
[2019-08-12] MEDS: DIVALPROEX 125 MG CAP.SPRINK PO SCH ×2 (08:46→12:13)
[2019-08-12] MEDS: SERTRALINE 100 MG TABLET. PO SCH (08:46)
[2019-08-12] MEDS: SERTRALINE 25 MG TABLET. PO SCH (08:46)
[2019-08-12] MEDS: ACETAMINOPHEN 500 MG TABLET PO SCH (08:46)
[2019-08-12] MEDS: QUEtiapine 25 MG TABLET. PO SCH ×2 (08:46→12:12)
[2019-08-12] MEDS: MEMANTINE 10 MG TABLET. PO SCH (08:46)
[2019-08-12] MEDS: FLUTICASONE 50MCG/NASAL SPRAY 16GM BOTTLE. NS SCH (08:47)
--- NOTE | 2019-08-12 13:25 | DS ---
DATE OF DISCHARGE: 08/12/2019 DISCHARGE SUMMARY AND PSYCHIATRIC PROGRESS NOTE This note covers the elements not covered in my initial note 08/12/2019. REASON FOR ADMISSION: Please refer to the admission history for details. Briefly, the patient is an 84-year-old female referred to us from [facility] by her primary care physician on account of worsening confusion, marked insomnia, refusing medications. She was reportedly having conversations with her . She was exit seeking, agitated, aggressive with staff. She had failed outpatient psychiatric interventions and prior inpatient hospitalizations. SIGNIFICANT FINDINGS AND CLINICAL COURSE: Following admission, the patient was seen daily individually by myself from a psychiatric standpoint, medical followup with Dr. Ibrahim. The patient was quite confused, agitated, being hard of hearing, only worsened her presentation. Adjustments were made in her psychotropics very gradually and she seemed to respond to a combination of Depakote Sprinkles 125 mg at 1300, 250 mg at 0900 and 1700 with a Valproic acid level therapeutic at 51. Xanax was 0.25 mg q. 6 hours p.r.n., BuSpar 5 mg t.i.d., Namenda 10 mg b.i.d., Seroquel 25 mg at noon and 37.5 mg at 0900 and 1700, Zoloft 125 mg a day. REVIEW OF SYSTEMS: Prior to discharge on 08/12/2019: Hard of hearing. No CV, , pulmonary, eye system symptoms on review. MENTAL STATUS EXAM: Oriented to herself. Insight, judgment, recent and remote memory, attention, concentration, fund of knowledge poor, consistent with her diagnosis. CONDITION AT DISCHARGE: Improved. FINAL DIAGNOSES: Major neurocognitive disorder, Alzheimer, vascular with delusion, depression, behavioral disturbance; anxiety disorder, unspecified; impulse control disorder, unspecified. Rest unchanged from admission. DISCHARGE MEDICATIONS: Please refer to the [facility]AD. DISCHARGE INSTRUCTIONS: Outpatient psychiatric and medical followup at the assisted. Time for discharge day management greater than 30 minutes. MAN Destiney TOLLIVER MD DR: JUANA/villa JOB#: [id number] / [id number]
--- NOTE | 2019-08-12 21:21 | PDOC ---
Exam Note: Hever Note: Please also refer to the separate dictated note~for this date of service dictated separately.~Patient seen individually. Discussed the patient with Nursing staff reviewed the chart.~Reviewed interim history and current functioning. Reviewed vital signs,~Labs/ Radiology~and current medications noted below. Continue current treatment with the changes noted in the dictated addendum note Assessment: Vital Signs/I&O: Vital Signs Date Time Temp Pulse Resp B/P (MAP) Pulse Ox O2 Delivery O2 Flow Rate FiO2 08/12/19 06:05 96.2 71 18 131/67 (88) 94 08/09/19 16:15 Room Air I & O 08/11/19 08/11/19 08/12/19 14:59 22:59 06:59 Intake Total 840 ml 240 ml 120 ml Balance 840 ml 240 ml 120 ml Current Medications: I have reviewed the current psychotropics carefully including drug interactions. Risk benefit ratio favors no change other than as noted in my dictated progress note. Diagnosis: Problems: (1) Anxiety disorder (2) Major neurocognitive disorder due to Alzheimer's disease, with behavioral disturbance (3) Dementia, vascular, with delusions (4) Dementia, vascular, with depression (5) Impulse control disorder NORAH TOLLIVER MD Aug 12, 2019 21:21
--- NOTE | 2019-08-13 00:03 | PN ---
DATE: 08/11/2019 PSYCHIATRIC PROGRESS NOTE This late entry 08/11/2019 covers elements not covered in my initial note. SUBJECTIVE: I met with the patient in the evening in her room at length. Per JOSEPH Calvo, the patient slept 8-1/4 hours previous night. She is up every 2 hours at night, went to the day room, did go back to bed and out in the day room on 08/11/2019. REVIEW OF SYSTEMS: Hard of hearing. No CV, , pulmonary, eye system symptoms on review. MENTAL STATUS EXAMINATION: Oriented to herself. Insight, judgment, recent and remote memory, attention, concentration, fund of knowledge poor, consistent with her diagnosis mentioned in my initial note. PLAN: No change from initial note. MAN Destiney TOLLIVER MD DR: JUANA/villa JOB#: [id number] / [id number]
== END 2019-08-12 13:21 | DRG 57 ==
LOC: ER 14:48 → GEROPSY 17:27
PROVIDERS: ADMIT Psychiatry & Neurology Psychiatry; ATTEND Psychiatry & Neurology Psychiatry
DX: G30.9 Alzheimer's disease, unspecified (principal); F02.81 Dementia in other diseases classified elsewhere, unspecified severity, with behavioral disturbance; F01.51 Vascular dementia, unspecified severity, with behavioral disturbance; N39.0 Urinary tract infection, site not specified; F63.9 Impulse disorder, unspecified; F41.9 Anxiety disorder, unspecified; F32.9 Major depressive disorder, single episode, unspecified; Z96.653 Presence of artificial knee joint, bilateral; I10 Essential (primary) hypertension; E78.5 Hyperlipidemia, unspecified; K58.0 Irritable bowel syndrome with diarrhea; M19.90 Unspecified osteoarthritis, unspecified site; Z66 Do not resuscitate; G47.00 Insomnia, unspecified; Z86.73 Personal history of transient ischemic attack (TIA), and cerebral infarction without residual deficits; Z79.899 Other long term (current) drug therapy
CPT/HCPCS: 36415; 71045; 80053; 80061; 80164; 80307; 80329; 81001; 82140; 82306; 82553; 82607; 83036; 83540; 83550; 83735; 84436; 84443; 84480; 84484; 85025; 86592; 87086; 93005; G0480; 82003; 99285-25